=== PATIENT | male | born 1990 | race African-American/Black ===

== ENCOUNTER 2023-03-09 18:17 | Observation (INO) ==
--- NOTE | 2023-03-09 18:37 | ED Triage Note ---
Date of Service March 09, 2023 History of Present Illness This patient was briefly evaluated while in triage. An abbreviated physical exam was performed. This patient is a 32-year-old Male who presents to the ED for evaluation of foreign body ingestion. He states he swallowed a pen, paperclip, batteries and a toothbrush about 3 hours ago. Physical Exam Initial orders for labs and / or imaging were placed and patient was placed in the waiting area until a bed is available. Please see further documentation for the full ED course.
[2023-03-09 20:31] LABS: Basophils # (auto) 0.03 K/uL (0-0.2); Basophils % (auto) 0.3 %; Eosinophils # (auto) 0.14 K/uL (0-0.50); Eosinophils % (auto) 1.5 %; Hematocrit (blood only) 39.5 % (42.0-52.0); Hemoglobin 13.2 g/dl (14.0-18.0); Immature Granulocytes # (auto) 0.02 K/uL (0.01-0.20); Immature Granulocytes % (auto) 0.2 %; Lymphocytes # (auto) 1.68 K/uL (1.2-3.4); Lymphocytes % (auto) 18.2 %; Mean Corpuscular Hemoglobin 27.2 pg (25.0-34.0); Mean Corpuscular Hgb Conc 33.4 g/dL (32.0-36.0); Mean Corpuscular Volume 81.3 fL (80.0-100.0); Mean Platelet Volume 10.5 fL (9.4-12.4); Monocytes # (auto) 0.42 K/uL (0.11-0.59); Monocytes % (auto) 4.6 %; Neutrophils # (auto) 6.93 K/uL (1.40-6.50); Neutrophils % (auto) 75.2 %; Platelet Count 214 K/uL (130-400); RDW Coefficient of Variation 13.9 % (11.5-14.5); RDW Standard Deviation 41.6 fL (36.4-46.3); Red Blood Count 4.86 M/uL (4.70-6.10); White Blood Count 9.22 K/ul (4.8-10.8)
--- NOTE | 2023-03-09 20:32 | XRay Report ---
XR chest 1V portable, XR KUB/Abdomen 1 view HISTORY: Foreign body ingestion COMPARISON: Chest x-ray and KUB 02/15/2019. FINDINGS: Chest x-ray: There is a button overlying the right scapula which is likely external to the patient. T he lungs are clear. No pneumothorax. No pleural effusions. The heart is normal in size. No acute frac tures identified. KUB: There are 2 cylindrical foreign bodies within the distal stomach which measure 5.9 cm. These lik alli represent batteries. There are 2 linear radiopaque foreign bodies within the proximal stomach whi ch likely represent ingested pens. These measure approximately 11 cm in length. There is also a 9 cm linear metallic foreign body within the stomach. Suture material noted within the midabdomen. No evid ence for a bowel obstruction. A 16 mm density within the right midabdomen which may represent a calci fication rather than a metallic foreign body. No pneumoperitoneum. No pneumatosis. IMPRESSION: 1. No radiopaque foreign bodies within the chest. 2. Multiple foreign bodies identified within the stomach as described above. 3. A 16 mm density within the right midabdomen which may represent a calcification rather than a meta llic foreign body. Follow-up serial KUB recommended for confirmation. ACT 112: Negative or not required by law. Electronically signed by: Eagle Phillips M.D. 03/09/2023 8:30 PM
[2023-03-09 20:37] LABS: Alanine Aminotransferase 15 U/L (7-52); Albumin Globulin Ratio 1.6 (0.9-2); Albumin Level 4.6 gm/dl (3.4-5.0); Alkaline Phosphatase 46 U/L (34-104); Anion Gap 6 (3-11); Aspartate Aminotransferase 20 U/L (13-39); Bilirubin,Total 0.5 mg/dl (0.2-1.0); Blood Urea Nitrogen 9 mg/dl (6-23); Calcium 9.7 mg/dl (8.6-10.3); Carbon Dioxide 26 mmol/L (21-32); Chloride 102 mmol/L (98-107); Est GFR (African American) 115.7 ml/min; Est GFR (Non-African American) 99.8 ml/min; Globulin 2.8 gm/dl (2.5-4.0); Glucose 89 mg/dl (70-99(Fasting)); Sodium 134 mmol/L (136-145); Total Protein 7.4 gm/dl (6.0-8.3)
--- NOTE | 2023-03-09 20:42 | Emergency Department Note ---
ED Provider Note History of Present Illness Chief Complaint: Foreign Body Stated Complaint: SWALLOWED MULTIPLE ITEMS,ABDOMINAL PAIN Time Seen by Provider: 03/09/23 20:11 This patient is a 32-year-old male who presents to the emergency department accompanied by correctional officers. Patient ingested 2 pens, 2 batteries, a paperclip and a toothbrush about 3 hours prior to arrival. He states that he did this in an attempt to hurt himself. He has done the same in the past. He reports epigastric abdominal pain and nausea, denies vomiting. Home Medications Medication Instructions Recorded Confirmed Type ciclesonide 160 mcg/actuation 1 puff inhalation BID 02/09/20 03/09/23 History aerosol inhaler (Alvesco) fluoxetine 20 mg capsule 60 mg PO DAILY 02/09/20 03/09/23 History omeprazole 40 mg capsule,delayed 40 mg PO DAILY 02/09/20 03/09/23 History release acyclovir 400 mg tablet 400 mg PO BID 03/09/23 03/09/23 History albuterol sulfate 90 mcg/actuation 2 puff inhalation QID PRN 03/09/23 03/09/23 History aerosol inhaler Shortness Of Breath Or Wheezing benztropine 0.5 mg tablet 0.5 mg PO BID 03/09/23 03/09/23 History buspirone 30 mg tablet 30 mg PO BID 03/09/23 03/09/23 History calcium polycarbophil 625 mg 625 mg PO BID 03/09/23 03/09/23 History tablet (FiberCon) haloperidol decanoate 100 mg/mL 100 mg IM .Q2WK 03/09/23 03/09/23 History intramuscular solution montelukast 10 mg tablet 10 mg PO PM 03/09/23 03/09/23 History (Singulair) trazodone 150 mg tablet 150 mg PO HS 03/09/23 03/09/23 History Allergies Allergy/AdvReac Type Severity Reaction Status Date / Time Penicillins Allergy Severe Anaphylaxis Verified 03/09/23 21:07 Past Med/Surg History Medical History Asthma Depression Foreign body ingestion Gastric foreign body Obesity (BMI 30-39.9) Surgical History History of esophagogastroduodenoscopy (EGD) Family History Other Family history non-contributory Social History Smoking Status: Never smoker Preferred Language: Telugu Current Living Situation: Other Current Living Situation Comment: [facility] Feels Safe at Home: Yes Physical Exam Vital Signs Vital Signs - 24 hr 03/09/23 18:33 03/09/23 20:15 03/09/23 21:43 Temperature 36.7 C Temperature Source Temporal Artery Scan Pulse Rate 78 Pulse Rate [Apical] 55 L 65 Respiratory Rate 18 18 18 Respiratory Depth Normal Normal Blood Pressure 152/77 H Blood Pressure [Right Arm] 124/73 125/75 Blood Pressure Mean 102 Blood Pressure Mean [Right Arm] 90 91 Pulse Oximetry 97 98 98 Oxygen Delivery Method Room Air Room Air Room Air Sepsis Recent Fever Within 48 Hours No Sepsis New/Unexplained Change in Mental Status No Sepsis Action Taken by Nursing No Action Required VITALS: Vitals are noted on the nurse's note and reviewed by myself. GENERAL: This is a 32-year-old male, in no acute distress, well-developed well- nourished. SKIN: The skin was without rashes. MOUTH: Mucous membranes moist. HEART: Regular rate and rhythm without murmurs gallops or rubs. LUNGS: Clear to auscultation bilaterally without wheezes, rales or rhonchi. ABDOMEN: Positive bowel sounds x 4. Soft, epigastric tenderness to palpation. No guarding or rebound tenderness. NEURO: Patient was alert and oriented to person place and time. Course Administered Medications Dextrose/Sodium Chloride (D5w And Nss) 1,000 mls @ 80 mls/hr IV .[id number] ONE Stop: 03/10/23 10:45 Last Admin: 03/09/23 23:21 Dose: 80 mls/hr Documented By: ENS Discontinued Medications Morphine Sulfate (Morphine Sulfate 4 Mg/Ml 1 Ml Carp\Vial) 4 mg IV NOW STA Stop: 03/09/23 21:32 Last Admin: 03/09/23 21:39 Dose: 4 mg Documented By: NRB Ondansetron HCl (Ondansetron Inj 2 Mg/Ml 2 Ml Vial) 4 mg IV NOW STA Stop: 03/09/23 23:54 Last Admin: 03/10/23 00:01 Dose: 4 mg Documented By: Medical Decision Making Differential Diagnosis Differential diagnosis includes foreign body ingestion, perforated viscus, bowel obstruction, among others. Home Medications was personally reviewed by me Laboratory Data Attestation: I reviewed the patient's lab results. 03/09/23 18:36 03/09/23 18:36 Lab Results 03/09/23 03/09/23 03/09/23 Range/Units 18:36 18:36 Unknown WBC 9.22 (4.8-10.8) K/ul RBC 4.86 (4.70-6.10) M/uL Hgb 13.2 L (14.0-18.0) g/dl Hct 39.5 L (42.0-52.0) % MCV 81.3 (80.0-100.0) fL MCH 27.2 (25.0-34.0) pg MCHC 33.4 (32.0-36.0) g/dL RDW Std Deviation 41.6 (36.4-46.3) fL RDW Coeff of Pieter 13.9 (11.5-14.5) % Plt Count 214 (130-400) K/uL MPV 10.5 (9.4-12.4) fL Immature Gran % (Auto) 0.2 % Neut % (Auto) 75.2 % Lymph % (Auto) 18.2 % [place] % (Auto) 4.6 % Eos % (Auto) 1.5 % Baso % (Auto) 0.3 % Neut # (Auto) 6.93 H (1.40-6.50) K/uL Lymph # (Auto) 1.68 (1.2-3.4) K/uL [place] # (Auto) 0.42 (0.11-0.59) K/uL Eos # (Auto) 0.14 (0-0.50) K/uL Baso # (Auto) 0.03 (0-0.2) K/uL Immature Gran # (Auto) 0.02 (0.01-0.20) K/uL Sodium 134 L (136-145) mmol/L Potassium 4.0 (3.5-5.1) mmol/L Chloride 102 (98-107) mmol/L Carbon Dioxide 26 (21-32) mmol/L Anion Gap 6 (3-11) BUN 9 (6-23) mg/dl Creatinine 1.00 (0.6-1.4) mg/dl Est Cr Clr Drug Dosing Not Reportable Est GFR ( Amer) 115.7 ml/min Est GFR (Non-Af Amer) 99.8 ml/min BUN/Creatinine Ratio 9.0 L (10-20) Glucose 89 (70-99(Fasting)) mg/dl Calcium 9.7 (8.6-10.3) mg/dl Total Bilirubin 0.5 (0.2-1.0) mg/dl AST 20 (13-39) U/L ALT 15 (7-52) U/L Alkaline Phosphatase 46 (34-104) U/L Total Protein 7.4 (6.0-8.3) gm/dl Albumin 4.6 (3.4-5.0) gm/dl Globulin 2.8 (2.5-4.0) gm/dl Albumin/Globulin Ratio 1.6 (0.9-2) SARS-CoV-2, RNA, NAAT NEGATIVE (NEGATIVE) Imaging Data Attestation: I personally reviewed and interpreted this imaging study as follows: Radiologist's Impression: Chest X-Ray 03/09/23 18:35 XR chest 1V portable, XR KUB/Abdomen 1 view HISTORY: Foreign body ingestion COMPARISON: Chest x-ray and KUB 02/15/2019. FINDINGS: Chest x-ray: There is a button overlying the right scapula which is likely exte rnal to the patient. The lungs are clear. No pneumothorax. No pleural effusions. The heart is normal in size. No acute fractures identified. KUB: There are 2 cylindrical foreign bodies within the distal stomach which measure 5.9 cm. These likely represent batteries. There are 2 linear radiopaque foreign bodies within the proximal stomach which likely represent ingested pens. These measure approximately 11 cm in length. There is also a 9 cm linear metallic foreign body within the stomach. Suture material noted within the midabdomen. No evidence for a bowel obstruction. A 16 mm density within the right midabdomen which may represent a calcification rather than a metallic foreign body. No pneumoperitoneum. No pneumatosis. IMPRESSION: 1. No radiopaque foreign bodies within the chest. 2. Multiple foreign bodies identified within the stomach as described above. 3. A 16 mm density within the right midabdomen which may represent a calcification rather than a metallic foreign body. Follow-up serial KUB recommended for confirmation. ACT 112: Negative or not required by law. Electronically signed by: Eagle Phillips M.D. 03/09/2023 8:30 PM KUB X-Ray 03/09/23 18:35 XR chest 1V portable, XR KUB/Abdomen 1 view HISTORY: Foreign body ingestion COMPARISON: Chest x-ray and KUB 02/15/2019. FINDINGS: Chest x-ray: There is a button overlying the right scapula which is likely external to the patient. The lungs are clear. No pneumothorax. No pleural effusions. The heart is normal in size. No acute fractures identified. KUB: There are 2 cylindrical foreign bodies within the distal stomach which measure 5.9 cm. These likely represent batteries. There are 2 linear radiopaque foreign bodies within the proximal stomach which likely represent ingested pens. These measure approximately 11 cm in length. There is also a 9 cm linear metallic foreign body within the stomach. Suture material noted within the midabdomen. No evidence for a bowel obstruction. A 16 mm density within the right midabdomen which may represent a calcification rather than a metallic foreign body. No pneumoperitoneum. No pneumatosis. IMPRESSION: 1. No radiopaque foreign bodies within the chest. 2. Multiple foreign bodies identified within the stomach as described above. 3. A 16 mm density within the right midabdomen which may represent a calcification rather than a metallic foreign body. Follow-up serial KUB recommended for confirmation. ACT 112: Negative or not required by law. Electronically signed by: Eagle Phlilips M.D. 03/09/2023 8:30 PM MDM Narrative This patient is a 32-year-old male who presents to the emergency department for evaluation of swallowed foreign bodies. X-rays here did demonstrate multiple foreign bodies within the stomach. Patient stable, complaining of abdominal pain and was given something for pain. Case was discussed with the on-call blue print control clerk, Dr. Palacios, who recommended admission to the medicine service and states he will take the patient for endoscopy in the morning. COVID test was performed and was negative. Case was discussed with the [facility] service who agreed to evaluate the patient for further care. Impression Foreign body ingestion Discharge Plan Visit Data Chief Complaint: Foreign Body Stated Complaint: SWALLOWED MULTIPLE ITEMS,ABDOMINAL PAIN ED Provider: Ken Calix ED Midlevel Provider: Kusum Monroy Discharge Problem: Foreign body ingestion Forms Stand Alone Forms: My [facility] Prescriptions Prescriptions: No Action omeprazole 40 mg Capsule,Delayed Release(Dr/Ec) 40 mg PO DAILY fluoxetine 20 mg Capsule 60 mg PO DAILY Rx Instructions: CRUSH Alvesco 160 mcg/actuation Hfa Aerosol Inhaler 1 puff INHALATION BID benztropine [Cogentin] 0.5 mg Tablet 0.5 mg PO BID Rx Instructions: CRUSH haloperidol decanoate 100 mg/mL Solution 100 mg IM .Q2WK Rx Instructions: Q 2 WK ON FRIDAYS. acyclovir [Zovirax] 400 mg Tablet 400 mg PO BID Rx Instructions: CRUSH trazodone 150 mg Tablet 150 mg PO HS Rx Instructions: CRUSH THIS MED buspirone [BuSpar] 30 mg Tablet 30 mg PO BID calcium polycarbophil [FiberCon] 625 mg Tablet 625 mg PO BID Rx Instructions: CRUSH montelukast [Singulair] 10 mg Tablet 10 mg PO PM albuterol sulfate 90 mcg/actuation Hfa Aerosol Inhaler 2 puff INHALATION QID PRN (Reason: Shortness Of Breath Or Wheezing) Referrals Referrals: Nahum CARRASCO [Non-Staff] -
[2023-03-09] MEDS ORDERED: MoRPHine SULFATE 4 MG/ML 1 ML CARP\\VIAL IV STA (21:31)
[2023-03-09] MEDS ORDERED: ACETAMINOPHEN 325 MG TAB PO PRN (22:16)
[2023-03-09] MEDS ORDERED: D5W AND NSS 1,000 ML IV ONE (22:16)
[2023-03-09] MEDS ORDERED: ONDANSETRON INJ 2 MG/ML 2 ML VIAL IV STA (23:53)
[2023-03-10] MEDS ORDERED: ACETAMINOPHEN 325 MG TAB PO STA (00:59)
--- NOTE | 2023-03-10 01:00 | History & Physical Report ---
Date of Service March 10, 2023 Assessment & Plan (1) Foreign body ingestion: Plan: Recurrent incidents secondary to self-harm intent hx mood disorder/ antisocial personality disorder/ borderline personality disorder Possible systolic murmur on exam bronchial asthma, stable GERD, stable on PPI chronic anemia, hemoglobin at baseline ongoing vape use OBS GMF GI consult Re: Foreign body ingestion (ER provider already in touch with Dr. Paz) N.p.o. until patient seen by GI service in a.m. (Patient known to Licha CRAWLEY) Psych consult re: suicidality/self-harm Suicide precautions TTE Re: Systolic murmur Nicotine patch as needed DVT prophylaxis. SCDs Full code Text document was generated using [employer] voice recognition software. It may contain grammatical or spelling errors. Kindly contact undersigned for clarification of any documentation item in question. History of Present Illness Chief Complaint: Foreign body ingestion Primary Care Provider: DANILO Donato History obtained from patient and records. Medical history significant for mood disorder, antisocial personality disorder, borderline personality disorder, IBS, bronchial asthma, GERD, chronic anemia (baseline hemoglobin of 13), hx multiple foreign body ingestions status post endoscopic intervention, ongoing vape use. Patient ingested 2 pens, batteries, a paperclip and a toothbrush yesterday in attempt to hurt himself at correctional facility. Patient depressed about not being able to see his family. Achy upper abdominal pain with nausea. Patient denies chest pain, SOB. No vomiting, no fever, no chills. Medical History as above Surgical History : None Family History : Cerebral aneurysm Personal/Social history : Vape use, no EtOH intake, factory work prior to incarceration Allergies Allergy/AdvReac Type Severity Reaction Status Date / Time Penicillins Allergy Severe Anaphylaxis Verified 03/09/23 21:07 Home Medications Medication Instructions Recorded Confirmed Type ciclesonide 160 mcg/actuation 1 puff inhalation BID 02/09/20 03/09/23 History aerosol inhaler (Alvesco) fluoxetine 20 mg capsule 60 mg PO DAILY 02/09/20 03/09/23 History omeprazole 40 mg capsule,delayed 40 mg PO DAILY 02/09/20 03/09/23 History release acyclovir 400 mg tablet 400 mg PO BID 03/09/23 03/09/23 History albuterol sulfate 90 mcg/actuation 2 puff inhalation QID PRN 03/09/23 03/09/23 History aerosol inhaler Shortness Of Breath Or Wheezing benztropine 0.5 mg tablet 0.5 mg PO BID 03/09/23 03/09/23 History buspirone 30 mg tablet 30 mg PO BID 03/09/23 03/09/23 History calcium polycarbophil 625 mg 625 mg PO BID 03/09/23 03/09/23 History tablet (FiberCon) haloperidol decanoate 100 mg/mL 100 mg IM .Q2WK 03/09/23 03/09/23 History intramuscular solution montelukast 10 mg tablet 10 mg PO PM 03/09/23 03/09/23 History (Singulair) trazodone 150 mg tablet 150 mg PO HS 03/09/23 03/09/23 History Past Med/Surg History Medical History Asthma Depression Foreign body ingestion Gastric foreign body Obesity (BMI 30-39.9) Surgical History History of esophagogastroduodenoscopy (EGD) Family History Other Family history non-contributory Social History Smoking Status: Current every day smoker Second Hand Exposure: No; Do You Dip or Chew Tobacco: No; Tobacco Cessation Education Requested by Patient: No Hx Alcohol Use: No Hx Substance Use: No Preferred Language: [place] Islander Communication Ability: Effective Legal Specialist Required: No Beliefs That Will Affect Care: None Current Living Situation: Other Current Living Situation Comment: Inmate at [facility]. Feels Safe at Home: Yes Safety Concerns: Feels Safe At This Time Review of Systems Review of Systems: As per HPI, all other systems reviewed and negative Physical Exam Physical Exam: GENERAL: Slightly uncomfortable, obese, flat affect,no respiratory distress SKIN: Normal color, warm HEENT: Bespectacled, pink palpebral conjunctivae, no ptosis, dry buccal mucosa NECK : Supple, no tenderness CHEST : CTA, no tenderness HEART : Bradycardic, systolic murmur best heard over left sternal border ABDOMEN: Some distention, central abdominal tenderness EXTREMITIES : Minimal LE swelling, no LE tenderness, no other conspicuous deformities noted NEUROLOGIC : Coherent, no facial asymmetry, no other gross focality Results & Data Results & Data Vital Signs (Past 12 Hours) Vital Signs Temp Pulse Pulse Resp BP BP Pulse Ox 03/09/23 21:43 65 18 125/75 98 03/09/23 20:15 55 L 18 124/73 98 03/09/23 18:33 36.7 C 78 18 152/77 H 97 O2 Del Method 03/09/23 21:43 Room Air 03/09/23 20:15 Room Air 03/09/23 18:33 Room Air Laboratory Results Laboratory Results WBC 9.22 K/ul (4.8-10.8) 03/09/23 18:36 RBC 4.86 M/uL (4.70-6.10) 03/09/23 18:36 Hgb 13.2 g/dl (14.0-18.0) L 03/09/23 18:36 Hct 39.5 % (42.0-52.0) L 03/09/23 18:36 MCV 81.3 fL (80.0-100.0) 03/09/23 18:36 MCH 27.2 pg (25.0-34.0) 03/09/23 18:36 MCHC 33.4 g/dL (32.0-36.0) 03/09/23 18:36 RDW Std Deviation 41.6 fL (36.4-46.3) 03/09/23 18:36 RDW Coeff of Pieter 13.9 % (11.5-14.5) 03/09/23 18:36 Plt Count 214 K/uL (130-400) 03/09/23 18:36 MPV 10.5 fL (9.4-12.4) 03/09/23 18:36 Immature Gran % (Auto) 0.2 % 03/09/23 18:36 Neut % (Auto) 75.2 % 03/09/23 18:36 Lymph % (Auto) 18.2 % 03/09/23 18:36 [place] % (Auto) 4.6 % 03/09/23 18:36 Eos % (Auto) 1.5 % 03/09/23 18:36 Baso % (Auto) 0.3 % 03/09/23 18:36 Neut # (Auto) 6.93 K/uL (1.40-6.50) H 03/09/23 18:36 Lymph # (Auto) 1.68 K/uL (1.2-3.4) 03/09/23 18:36 [place] # (Auto) 0.42 K/uL (0.11-0.59) 03/09/23 18:36 Eos # (Auto) 0.14 K/uL (0-0.50) 03/09/23 18:36 Baso # (Auto) 0.03 K/uL (0-0.2) 03/09/23 18:36 Immature Gran # (Auto) 0.02 K/uL (0.01-0.20) 03/09/23 18:36 Sodium 134 mmol/L (136-145) L 03/09/23 18:36 Potassium 4.0 mmol/L (3.5-5.1) 03/09/23 18:36 Chloride 102 mmol/L (98-107) 03/09/23 18:36 Carbon Dioxide 26 mmol/L (21-32) 03/09/23 18:36 Anion Gap 6 (3-11) 03/09/23 18:36 BUN 9 mg/dl (6-23) 03/09/23 18:36 Creatinine 1.00 mg/dl (0.6-1.4) 03/09/23 18:36 Est Cr Clr Drug Dosing Not Reportable 03/09/23 18:36 Est GFR ( Amer) 115.7 ml/min 03/09/23 18:36 Est GFR (Non-Af Amer) 99.8 ml/min 03/09/23 18:36 BUN/Creatinine Ratio 9.0 (10-20) L 03/09/23 18:36 Glucose 89 mg/dl (70-99(Fasting)) 03/09/23 18:36 Calcium 9.7 mg/dl (8.6-10.3) 03/09/23 18:36 Total Bilirubin 0.5 mg/dl (0.2-1.0) 03/09/23 18:36 AST 20 U/L (13-39) 03/09/23 18:36 ALT 15 U/L (7-52) 03/09/23 18:36 Alkaline Phosphatase 46 U/L (34-104) 03/09/23 18:36 Total Protein 7.4 gm/dl (6.0-8.3) 03/09/23 18:36 Albumin 4.6 gm/dl (3.4-5.0) 03/09/23 18:36 Globulin 2.8 gm/dl (2.5-4.0) 03/09/23 18:36 Albumin/Globulin Ratio 1.6 (0.9-2) 03/09/23 18:36 SARS-CoV-2, RNA, NAAT NEGATIVE (NEGATIVE) 03/09/23 Unknown Impressions Chest X-Ray 03/09/23 18:35 XR chest 1V portable, XR KUB/Abdomen 1 view HISTORY: Foreign body ingestion COMPARISON: Chest x-ray and KUB 02/15/2019. FINDINGS: Chest x-ray: There is a button overlying the right scapula which is likely external to the patient. The lungs are clear. No pneumothorax. No pleural effusions. The heart is normal in size. No acute fractures identified. KUB: There are 2 cylindrical foreign bodies within the distal stomach which measure 5.9 cm. These likely represent batteries. There are 2 linear radiopaque foreign bodies within the proximal stomach which likely represent ingested pens. These measure approximately 11 cm in length. There is also a 9 cm linear metallic foreign body within the stomach. Suture material noted within the midabdomen. No evidence for a bowel obstruction. A 16 mm density within the right midabdomen which may represent a calcification rather than a metallic foreign body. No pneumoperitoneum. No pneumatosis. IMPRESSION: 1. No radiopaque foreign bodies within the chest. 2. Multiple foreign bodies identified within the stomach as described above. 3. A 16 mm density within the right midabdomen which may represent a calcification rather than a metallic foreign body. Follow-up serial KUB recommended for confirmation. ACT 112: Negative or not required by law. Electronically signed by: Eagle Phillips M.D. 03/09/2023 8:30 PM KUB X-Ray 03/09/23 18:35 XR chest 1V portable, XR KUB/Abdomen 1 view HISTORY: Foreign body ingestion COMPARISON: Chest x-ray and KUB 02/15/2019. FINDINGS: Chest x-ray: There is a button overlying the right scapula which is likely ex ternal to the patient. The lungs are clear. No pneumothorax. No pleural effusions. The heart is normal in size. No acute fractures identified. KUB: There are 2 cylindrical foreign bodies within the distal stomach which measure 5.9 cm. These likely represent batteries. There are 2 linear radiopaque foreign bodies within the proximal stomach which likely represent ingested pens. These measure approximately 11 cm in length. There is also a 9 cm linear metallic foreign body within the stomach. Suture material noted within the midabdomen. No evidence for a bowel obstruction. A 16 mm density within the right midabdomen which may represent a calcification rather than a metallic foreign body. No pneumoperitoneum. No pneumatosis. IMPRESSION: 1. No radiopaque foreign bodies within the chest. 2. Multiple foreign bodies identified within the stomach as described above. 3. A 16 mm density within the right midabdomen which may represent a calcification rather than a metallic foreign body. Follow-up serial KUB recommended for confirmation. ACT 112: Negative or not required by law. Electronically signed by: Eagle Phillips M.D. 03/09/2023 8:30 PM (1) Foreign body ingestion Encounter type: initial encounter Qualified Code(s): T18.9XXA - Foreign body of alimentary tract, part unspecified, initial encounter
[2023-03-10] MEDS ORDERED: KETOROLAC TROMETHAMINE 15 MG/ML VIAL IV ONE (03:38)
[2023-03-10] MEDS ORDERED: KETOROLAC TROMETHAMINE 15 MG/ML VIAL ONE (03:44)
[2023-03-10] MEDS: NICOTINE 21 MG/24 HR TDSY TD SCH (03:49)
[2023-03-10] MEDS ORDERED: PROMETHAZINE HCL 12.5 MG in SODIUM CHLORIDE 0.9% 50 ML IV PRN (04:24)
[2023-03-10] MEDS: traZODone HCL 50 MG TAB PO SCH ×2 (05:25→20:09)
[2023-03-10] MEDS: traMADol HCL 50 MG TABLET PO PRN ×2 (05:35→18:26)
[2023-03-10] MEDS ORDERED: ACETAMINOPHEN 1,000 MG/100 ML VIAL IV PRN (08:46)
--- NOTE | 2023-03-10 08:57 | Gastrointestinal Consultation ---
Date of Consultation March 10, 2023 Assessment & Plan (1) Foreign body ingestion: Pt is a 32 yo male, who swallowed objects as noted above due to worsening depression. - NPO - IVF support, PPI - Repeat KUB this AM to determine location of foreign bodies and decide if endoscopic intervention would be indicated. Supervising Physician Co-Signing Physician Notes Attg add: Plan EGD for FB removal today, anticipate discharge after procedure. History of Present Illness Reason for Consultation: Foreign body ingestion Requesting Physician: Dr. Jamel Tinoco Attending Physician: Dr. Veronica Toledo History of Present Illness Pt is a 32 yo male inmate from [place] who presented last night w c/o nausea, abd pain after ingestion foreign bodies. He has hx of depression, suicidal ideations. Was having family issues and getting more depressed. Swallowed 2 AA Energizer batteries, 2 pens, 1 toothbrush, and a paper clip yesterday at 3PM. Labs reviewed from admission wo acute issues. KUB yesterday evening showed multiple foreign bodies in stomach. This AM he reports feeling nauseated, no vomiting. Having mid to L side abd pain. Not passing flatus and hasn't had BM for days. Allergies Allergy/AdvReac Type Severity Reaction Status Date / Time Penicillins Allergy Severe Anaphylaxis Verified 03/09/23 21:07 Home Medications Medication Instructions Recorded Confirmed Type ciclesonide 160 mcg/actuation 1 puff inhalation BID 02/09/20 03/09/23 History aerosol inhaler (Alvesco) fluoxetine 20 mg capsule 60 mg PO DAILY 02/09/20 03/09/23 History omeprazole 40 mg capsule,delayed 40 mg PO DAILY 02/09/20 03/09/23 History release acyclovir 400 mg tablet 400 mg PO BID 03/09/23 03/09/23 History albuterol sulfate 90 mcg/actuation 2 puff inhalation QID PRN 03/09/23 03/09/23 History aerosol inhaler Shortness Of Breath Or Wheezing benztropine 0.5 mg tablet 0.5 mg PO BID 03/09/23 03/09/23 History buspirone 30 mg tablet 30 mg PO BID 03/09/23 03/09/23 History calcium polycarbophil 625 mg 625 mg PO BID 03/09/23 03/09/23 History tablet (FiberCon) haloperidol decanoate 100 mg/mL 100 mg IM .Q2WK 03/09/23 03/09/23 History intramuscular solution montelukast 10 mg tablet 10 mg PO PM 03/09/23 03/09/23 History (Singulair) trazodone 150 mg tablet 150 mg PO HS 03/09/23 03/09/23 History Patient History Medical History Asthma Depression Foreign body ingestion Gastric foreign body Obesity (BMI 30-39.9) Surgical History History of esophagogastroduodenoscopy (EGD) Family History Other Family history non-contributory Social History Smoking Status: Current every day smoker Second Hand Exposure: No; Do You Dip or Chew Tobacco: No; Tobacco Cessation Education Requested by Patient: No Hx Alcohol Use: No Hx Substance Use: No Preferred Language: Austrian Communication Ability: Effective Cardiac Catheterization Technologist Required: No Beliefs That Will Affect Care: None Current Living Situation: Other Current Living Situation Comment: Inmate at [facility]. Feels Safe at Home: Yes Safety Concerns: Feels Safe At This Time Assistive Devices: None Review of Systems Review of Systems: All systems reviewed & are unremarkable except as noted in HPI & below Physical Exam Constitutional: WD/WN, vitals as above well groomed, cooperative and comfortable Eyes: PERRL, conjunctivae normal, anicteric sclerae ENMT: external ear and nose normal, oropharynx normal Respiratory: normal respiratory effort, lungs clear to auscultation Cardiovascular: RRR, no murmur, no edema Gastrointestinal (Abdomen): TTP mid abd, LUQ areas Skin: no rashes, warm and dry no jaundice Psychiatric: A+Ox3, euthymic affect Lymphatic: no lymphedema Results & Data Vital Signs (Past 12 Hours) Vital Signs Temp Pulse Pulse Resp BP Pulse Ox O2 Del Method 03/10/23 07:36 36.5 C 52 L 17 119/73 98 Room Air 03/10/23 04:25 36.8 C 47 L 16 125/76 98 Room Air 03/10/23 04:00 59 L 16 127/82 03/10/23 01:00 60 18 149/95 H 98 Room Air 03/09/23 23:00 58 L 18 140/83 97 Room Air 03/09/23 21:43 65 18 125/75 98 Room Air (1) Foreign body ingestion Encounter type: initial encounter Qualified Code(s): T18.9XXA - Foreign body of alimentary tract, part unspecified, initial encounter
[2023-03-10] MEDS: BENZTROPINE MESYLATE 0.5 MG TAB PO SCH ×2 (09:14→20:08)
[2023-03-10] MEDS: busPIRone 15 MG TAB PO SCH ×2 (09:14→20:09)
[2023-03-10] MEDS: FLUoxetine HCL 20 MG CAP PO SCH (09:14)
[2023-03-10] MEDS: ACYCLOVIR 400 MG TAB PO SCH ×2 (09:14→20:08)
[2023-03-10] MEDS: PANTOprazole 40 MG TAB PO SCH (09:15)
[2023-03-10] MEDS: FLUTICASONE FUROATE 200MCG 14 PUFFS/INHALER INH SCH (09:15)
--- NOTE | 2023-03-10 09:18 | XRay Report ---
KUB CLINICAL HISTORY: Foreign body ingestion. FINDINGS: 3 AP supine abdominal radiographs are compared to study dated 03/09/2023. There is a nonobst ructive abdominal bowel gas pattern. 2 cylindrical foreign bodies projecting over the right mid abdom en measure up to 5 cm and likely represent batteries. An approximately 11 cm linear metallic foreign body also projects over the right upper quadrant. 2 additional radiolucent foreign bodies project ove r the left upper quadrant and measure approximately 13 cm. The calcified structure in the right midab domen seen yesterday is no longer visualized. No evidence of intraperitoneal free air is seen on thes e supine images. Suture tube projects over the mid abdomen. There is moderate colonic fecal retention . Phleboliths are noted in the pelvis. The lung bases are clear. The bony structures appear intact. IMPRESSION: There are at least 5 radiodense foreign bodies as detailed above. Electronically signed by: Jerry Mittal M.D. 03/10/2023 9:17 AM
[2023-03-10] MEDS ORDERED: D5W AND NSS 1,000 ML IV SCH (11:00)
[2023-03-10] MEDS ORDERED: ONDANSETRON INJ 2 MG/ML 2 ML VIAL IV PRN (11:49)
[2023-03-10] MEDS ORDERED: ePHEDrine sulfate 50 MG/ML AMP IV PRN (11:49)
[2023-03-10] MEDS ORDERED: ATROPINE SULFATE 0.1 MG/ML 10ML SYR IV PRN (11:49)
[2023-03-10] MEDS ORDERED: fentaNYL citrate PF 100 MCG/2 ML VIAL IV PRN (11:49)
--- NOTE | 2023-03-10 11:49 | Anesthesiology Consultation ---
Date of Service March 10, 2023 Assessment & Plan Chart Review Chart Review: cafeteria assistant initiated History Surgery Operation Date: 03/10/23 09:00 Proposed Procedures p Esophagogastroduodenoscopy - Veronica Toledo MD Height/Weight Height: 5 ft 11 in Weight: 98.4 kg Allergies Allergy/AdvReac Type Severity Reaction Status Date / Time Penicillins Allergy Severe Anaphylaxis Verified 03/09/23 21:07 Medications Home Medications Medication Instructions Recorded Confirmed Last Taken ciclesonide 160 mcg/actuation 1 puff inhalation BID 02/09/20 03/09/23 03/09/23 aerosol inhaler (Alvesco) fluoxetine 20 mg capsule 60 mg PO DAILY 02/09/20 03/09/23 03/09/23 omeprazole 40 mg capsule,delayed 40 mg PO DAILY 02/09/20 03/09/23 03/09/23 release acyclovir 400 mg tablet 400 mg PO BID 03/09/23 03/09/23 03/09/23 albuterol sulfate 90 mcg/actuation 2 puff inhalation QID PRN 03/09/23 03/09/23 Unknown aerosol inhaler Shortness Of Breath Or Wheezing benztropine 0.5 mg tablet 0.5 mg PO BID 03/09/23 03/09/23 03/09/23 buspirone 30 mg tablet 30 mg PO BID 03/09/23 03/09/23 03/09/23 calcium polycarbophil 625 mg 625 mg PO BID 03/09/23 03/09/23 03/09/23 tablet (FiberCon) haloperidol decanoate 100 mg/mL 100 mg IM .Q2WK 03/09/23 03/09/23 02/26/23 intramuscular solution montelukast 10 mg tablet 10 mg PO PM 03/09/23 03/09/23 03/08/23 (Singulair) trazodone 150 mg tablet 150 mg PO HS 03/09/23 03/09/23 03/08/23 Active Medications Generic Name Dose Route Start Last Admin Trade Name Freq PRN Reason Stop Dose Admin Acyclovir 400 mg 03/10/23 09:00 03/10/23 09:14 Acyclovir 400 Mg Tab PO 04/09/23 08:59 400 mg BID JESÚS Administration Benztropine Mesylate 0.5 mg 03/10/23 09:00 03/10/23 09:14 Benztropine Mesylate 0.5 Mg Tab PO 04/09/23 08:59 0.5 mg BID JESÚS Administration Buspirone HCl 30 mg 03/10/23 09:00 03/10/23 09:14 Buspirone 15 Mg Tab PO 04/09/23 08:59 30 mg BID JESÚS Administration Fluoxetine HCl 60 mg 03/10/23 09:00 03/10/23 09:14 Fluoxetine Hcl 20 Mg Cap PO 04/09/23 08:59 60 mg DAILY JESÚS Administration Fluticasone Furoate 1 puffs 03/10/23 09:00 03/10/23 09:15 Fluticasone Furoate 200mcg 14 Puffs/Inhaler INH 04/09/23 08:59 1 puffs DAILY JESÚS Administration Acetaminophen 1,000 mg in 100 mls @ 400 mls/hr 03/10/23 08:46 03/10/23 10:14 Ofirmev IV 03/13/23 08:45 Infused Q8H PRN Infusion Pain Miscellaneous 1 each 03/10/23 08:59 03/10/23 09:16 Remove Nicoderm Patch N/A 04/09/23 08:58 Not Given DAILY@0859 JESÚS Nicotine 21 mg 03/10/23 01:05 03/10/23 03:49 Nicotine 21 Mg/24 Hr Tdsy TD 04/09/23 01:04 21 mg QAM JESÚS Administration Pantoprazole Sodium 40 mg 03/10/23 09:00 03/10/23 09:15 Pantoprazole 40 Mg Tab PO 04/09/23 08:59 40 mg DAILY JESÚS Administration Tramadol HCl 25 - 50 mg 03/10/23 03:38 03/10/23 05:35 Tramadol Hcl 50 Mg Tablet PO 04/09/23 03:37 50 mg Q4H PRN Administration Pain Trazodone HCl 150 mg 03/10/23 04:24 03/10/23 05:25 Trazodone Hcl 50 Mg Tab PO 04/09/23 04:23 150 mg HS JESÚS Administration Past Medical History Medical History Asthma Depression Foreign body ingestion Gastric foreign body Obesity (BMI 30-39.9) Past Family History Family History Other Family history non-contributory Past Surgical History Surgical History History of esophagogastroduodenoscopy (EGD) Social History Smoking Status: Current every day smoker tobacco type: e-cigarettes Do You Dip or Chew Tobacco: No Hx Alcohol Use: No Hx Substance Use: No substance use type: does not use Physical Exam Vital Signs Last Vital Signs Temp 97.7 F 03/10/23 07:36 Pulse 52 L 03/10/23 07:36 Resp 17 03/10/23 07:36 BP 119/73 03/10/23 07:36 Pulse Ox 98 03/10/23 07:36 O2 Del Method Room Air 03/10/23 07:36 Testing Laboratory Results 03/09/23 18:36 03/09/23 18:36
--- NOTE | 2023-03-10 12:10 | History & Physical Report ---
Date of Service March 10, 2023 Assessment & Plan Admission and Anticipated Discharge Date Admission Date: March 10, 2023 History of Present Illness Primary Care Provider: DANILO Donato Foreign body CV: RRR Resp: CTA Abd: soft A/p: EGD for FB removal. We will remove only objects that are unlikely to pass. Allergies Allergy/AdvReac Type Severity Reaction Status Date / Time Penicillins Allergy Severe Anaphylaxis Verified 03/09/23 21:07 Home Medications Medication Instructions Recorded Confirmed Type ciclesonide 160 mcg/actuation 1 puff inhalation BID 02/09/20 03/09/23 History aerosol inhaler (Alvesco) fluoxetine 20 mg capsule 60 mg PO DAILY 02/09/20 03/09/23 History omeprazole 40 mg capsule,delayed 40 mg PO DAILY 02/09/20 03/09/23 History release acyclovir 400 mg tablet 400 mg PO BID 03/09/23 03/09/23 History albuterol sulfate 90 mcg/actuation 2 puff inhalation QID PRN 03/09/23 03/09/23 History aerosol inhaler Shortness Of Breath Or Wheezing benztropine 0.5 mg tablet 0.5 mg PO BID 03/09/23 03/09/23 History buspirone 30 mg tablet 30 mg PO BID 03/09/23 03/09/23 History calcium polycarbophil 625 mg 625 mg PO BID 03/09/23 03/09/23 History tablet (FiberCon) haloperidol decanoate 100 mg/mL 100 mg IM .Q2WK 03/09/23 03/09/23 History intramuscular solution montelukast 10 mg tablet 10 mg PO PM 03/09/23 03/09/23 History (Singulair) trazodone 150 mg tablet 150 mg PO HS 03/09/23 03/09/23 History Past Med/Surg History Medical History Asthma Depression Foreign body ingestion Gastric foreign body Obesity (BMI 30-39.9) Surgical History History of esophagogastroduodenoscopy (EGD) Family History Other Family history non-contributory Social History Smoking Status: Current every day smoker Second Hand Exposure: No; Do You Dip or Chew Tobacco: No; Tobacco Cessation Education Requested by Patient: No Hx Alcohol Use: No Hx Substance Use: No Preferred Language: Pashto Communication Ability: Effective Ways Operator Required: No Beliefs That Will Affect Care: None Current Living Situation: Other Current Living Situation Comment: Inmate at [facility]. Feels Safe at Home: Yes Safety Concerns: Feels Safe At This Time Results & Data Results & Data Vital Signs (Past 12 Hours) Vital Signs Temp Pulse Pulse Resp BP Pulse Ox O2 Del Method 03/10/23 12:03 36.6 C 51 L 20 135/80 100 Room Air 03/10/23 07:36 36.5 C 52 L 17 119/73 98 Room Air 03/10/23 04:25 36.8 C 47 L 16 125/76 98 Room Air 03/10/23 04:00 59 L 16 127/82 03/10/23 01:00 60 18 149/95 H 98 Room Air Code Status & VTE Plan VTE Prophylaxis Plan VTE Prophylaxis will be ordered: Yes
[2023-03-10] MEDS ORDERED: MIDAZOLAM HCL 1 MG/ML 2ML VIAL ONE (12:11)
[2023-03-10] MEDS ORDERED: fentaNYL citrate PF 100 MCG/2 ML VIAL ONE (12:11)
--- NOTE | 2023-03-10 13:00 | History & Physical Report ---
Date of Service March 10, 2023 Assessment & Plan Admission and Anticipated Discharge Date Admission Date: March 10, 2023 History of Present Illness Primary Care Provider: DANILO Donato Allergies Allergy/AdvReac Type Severity Reaction Status Date / Time Penicillins Allergy Severe Anaphylaxis Verified 03/09/23 21:07 Home Medications Medication Instructions Recorded Confirmed Type ciclesonide 160 mcg/actuation 1 puff inhalation BID 02/09/20 03/09/23 History aerosol inhaler (Alvesco) fluoxetine 20 mg capsule 60 mg PO DAILY 02/09/20 03/09/23 History omeprazole 40 mg capsule,delayed 40 mg PO DAILY 02/09/20 03/09/23 History release acyclovir 400 mg tablet 400 mg PO BID 03/09/23 03/09/23 History albuterol sulfate 90 mcg/actuation 2 puff inhalation QID PRN 03/09/23 03/09/23 History aerosol inhaler Shortness Of Breath Or Wheezing benztropine 0.5 mg tablet 0.5 mg PO BID 03/09/23 03/09/23 History buspirone 30 mg tablet 30 mg PO BID 03/09/23 03/09/23 History calcium polycarbophil 625 mg 625 mg PO BID 03/09/23 03/09/23 History tablet (FiberCon) haloperidol decanoate 100 mg/mL 100 mg IM .Q2WK 03/09/23 03/09/23 History intramuscular solution montelukast 10 mg tablet 10 mg PO PM 03/09/23 03/09/23 History (Singulair) trazodone 150 mg tablet 150 mg PO HS 03/09/23 03/09/23 History Past Med/Surg History Medical History Asthma Depression Foreign body ingestion Gastric foreign body Obesity (BMI 30-39.9) Surgical History History of esophagogastroduodenoscopy (EGD) Family History Other Family history non-contributory Social History Smoking Status: Current every day smoker Second Hand Exposure: No; Do You Dip or Chew Tobacco: No; Tobacco Cessation Education Requested by Patient: No Hx Alcohol Use: No Hx Substance Use: No Preferred Language: Georgian Communication Ability: Effective Certified Endoscopy Technician Required: No Beliefs That Will Affect Care: None Current Living Situation: Other Current Living Situation Comment: Inmate at [facility]. Feels Safe at Home: Yes Safety Concerns: Feels Safe At This Time Results & Data Results & Data Vital Signs (Past 12 Hours) Vital Signs Temp Pulse Pulse Resp BP Pulse Ox O2 Del Method 03/10/23 12:03 36.6 C 51 L 20 135/80 100 Room Air 03/10/23 07:36 36.5 C 52 L 17 119/73 98 Room Air 03/10/23 04:25 36.8 C 47 L 16 125/76 98 Room Air 03/10/23 04:00 59 L 16 127/82 Code Status & VTE Plan VTE Prophylaxis Plan VTE Prophylaxis will be ordered: Yes
[2023-03-10] MEDS ORDERED: PROPOFOL IV EMULSION 10 MG/ML 20 ML VIAL IV ONE (13:13)
[2023-03-10] MEDS ORDERED: SUCCINYLCHOLINE CHLORIDE 20 MG/ML 10 ML VIAL IV ONE (13:13)
[2023-03-10] MEDS ORDERED: ONDANSETRON INJ 2 MG/ML 2 ML VIAL ONE (13:13)
[2023-03-10] MEDS ORDERED: LIDOCAINE 2% MPF LOCAL 5 ML VIAL ONE (13:13)
[2023-03-10] MEDS ORDERED: ROCURONIUM BROMIDE 10 MG/ML 5 ML VIAL IV ONE (13:13)
--- NOTE | 2023-03-10 14:19 | Anesthesiology Progress Note ---
Date of Service March 10, 2023 Anesthesia Post Procedure Vital Signs Vital Signs: Temp Pulse Pulse Pulse Resp BP BP 03/10/23 14:10 51 L 13 118/75 03/10/23 14:00 52 L 14 121/74 03/10/23 13:52 96.8 F L 55 L 13 127/79 03/10/23 12:03 97.9 F 51 L 20 135/80 03/10/23 07:36 97.7 F 52 L 17 119/73 03/10/23 04:25 98.2 F 47 L 16 125/76 03/10/23 04:00 59 L 16 127/82 03/10/23 01:00 60 18 149/95 H 03/09/23 23:00 58 L 18 140/83 03/09/23 21:43 65 18 125/75 03/09/23 20:15 55 L 18 124/73 03/09/23 18:33 98.1 F 78 18 152/77 H Pulse Ox O2 Del Method O2 Flow Rate 03/10/23 14:10 98 Room Air 03/10/23 14:00 99 Oxymask 7 03/10/23 13:52 100 Oxymask 7 03/10/23 12:03 100 Room Air 03/10/23 07:36 98 Room Air 03/10/23 04:25 98 Room Air 03/10/23 04:00 03/10/23 01:00 98 Room Air 03/09/23 23:00 97 Room Air 03/09/23 21:43 98 Room Air 03/09/23 20:15 98 Room Air 03/09/23 18:33 97 Room Air Pain Intensity Abdomen: Pain Intensity: 7 Transfer of Care Handoff Completed per policy Notes Mental Status: alert / awake / arousable and participated in evaluation Patient Amnestic to Procedure: Yes Nausea / Vomiting: adequately controlled Pain: adequately controlled Airway Patency, RR, SpO2: stable & adequate BP & HR: stable & adequate Hydration State: stable & adequate Anesthetic Complications: no major complications apparent and Pt Satisfied with anesthetic care
[2023-03-10] MEDS ORDERED: ALBUTEROL HFA 8 GM INHALER INH PRN (14:35)
--- NOTE | 2023-03-10 14:57 | GI REPORT ---
Patient Name: Joshua Razat Procedure Date: 03/10/2023 12:57 PM Date of : 1990 Admit Type: Inpatient Age: 32 Gender: Male Attending MD: Veronica Toledo MD, Procedure: Upper GI endoscopy Providers: Veronica Toledo MD Referring MD: Kinga Vo Indications: Suspected ingestion of foreign body Medicines: See the Anesthesia note for documentation of the administered medications Complications: No immediate complications. Estimated Blood Loss: Estimated blood loss: none. Procedure: Pre-Anesthesia Assessment: - ASA Grade Assessment: III - A patient with severe systemic disease. After obtaining informed consent, the endoscope was passed under direct vision. Throughout the procedure, the patient's blood pressure, pulse, and oxygen saturations were monitored continuously. The Scope was introduced through the mouth, and advanced to the fourth part of duodenum. The upper GI endoscopy was accomplished without difficulty. The patient tolerated the procedure well. Findings: There was a toothbrush in the esophagus that was removed with a snare. There were two pens in the stomach removed using a snare. There was a straightened paperclip in the duodenum; one end of this appears to have been sharpened. This was removed using a cortez and a snare. The mucosa of the esophagus, stomach, and duodenum was normal. Recommendation: - Discharge patient to fdc. Clears today. Veronica Toledo M.D. Veronica Toledo MD 03/10/2023 2:57:12 PM This report has been signed electronically. Note Initiated On: 03/10/2023 12:57 PM Number of Addenda: 0 I attest to the content of the Intraoperative Record and orders documented therein, exceptions below {[id number]}
--- NOTE | 2023-03-10 15:48 | Hospitalist Progress Note ---
Date of Service March 10, 2023 Assessment & Plan (1) Foreign body ingestion: Plan: This is a 32-year-old male with recurrent depressive disorder who presents to ED on 03/10 secondary to foreign body ingestion. Patient has multiple recurrences of this secondary to self-harm intent. He states recently increase in depression and impulsiveness due to lack of family support and diagnosis of herpes. hx mood disorder/ antisocial personality disorder/ borderline personality disorder Foreign body ingestion Patient reports swallowing toothbrush, 2 energizer batteries, sharpened paperclip into pen GI consulted KUB performed this morning and viewed Patient underwent EGD this late morning and tooth brush, pens and paperclip removed batteries not removed, not lithium, will be able to pass on own clear liquid diet tomorrow anticipate d/c tomorrow back to residential Recurrent depression Suicidal ideation 1:1 finger foods only psych not to see him will need to follow with psychiatrist as OP continue meds bronchial asthma, stable GERD, stable on PPI chronic anemia, hemoglobin at baseline ongoing vape use nicotine patch DVT ppx: SCDS FULL CODE PCP: Kinga CARRASCO Pt was admitted after 00:00 on 03/10/23 therefore this is not a billable service. Seen in collaboration with Dr. Tinoco. Admission and Anticipated Discharge Date Admission Date: March 10, 2023 Supervising Physician Co-Signing Physician Notes Patient seen and examined independently. Discussed with above provider. Patient underwent endoscopy; found to have to toothbrush in the esophagus that was removed with a snare. 2 pens in the stomach was also removed. Also, straightened paperclip was remove from duodenum. The mucosa of esophagus, stomach and duodenum was normal. Patient started on clear liquid. No utensils. Will observe overnight and DC tomorrow AM. Subjective Pt was seen and examined in room 361-1 follow up ingestion of foreign body. Pt was seen pre EGD. complain of periumbilical abd pain. Denies n/v/d, f/c/s, chest pain, sob. No BM, no flatus. GI at bedside. Review of Systems Review of Systems: All systems reviewed & are unremarkable except as noted in HPI & below Physical Exam Physical Exam: Gen: WD/WN, NAD, A&O x3 HEENT: Normocephalic, atraumatic, conjunctivae moist, sclerae anicteric, mucous membranes moist. Lung: Clear to Auscultation bilaterally, no wheezes/rales/rhonchi Heart: Regular rate, regular rhythm, no murmurs, rubs, or gallops Abdomen: Soft, NT, ND +BS x 4 mild periumbilical abd pain Extremities: No edema Skin: Warm, no rash, negative turgor. Results & Data Results & Data Vital Signs (Past 12 Hours) Vital Signs Temp Pulse Pulse Resp BP Pulse Ox O2 Del Method 03/10/23 15:34 36.6 C 70 18 116/72 98 Room Air 03/10/23 15:06 36.6 C 64 18 113/72 98 Room Air 03/10/23 14:30 36.4 C L 53 L 16 120/81 96 Room Air 03/10/23 14:20 36.1 C L 49 L 13 116/69 97 Room Air 03/10/23 14:10 51 L 13 118/75 98 Room Air 03/10/23 14:00 52 L 14 121/74 99 Oxymask 03/10/23 13:52 36 C L 55 L 13 127/79 100 Oxymask 03/10/23 12:03 36.6 C 51 L 20 135/80 100 Room Air 03/10/23 07:36 36.5 C 52 L 17 119/73 98 Room Air 03/10/23 04:25 36.8 C 47 L 16 125/76 98 Room Air 03/10/23 04:00 59 L 16 127/82 O2 Flow Rate 03/10/23 15:34 03/10/23 15:06 03/10/23 14:30 03/10/23 14:20 03/10/23 14:10 03/10/23 14:00 7 03/10/23 13:52 7 03/10/23 12:03 03/10/23 07:36 03/10/23 04:25 03/10/23 04:00 Diagnostic Findings EGD: Findings: There was a toothbrush in the esophagus that was removed with a snare. There were two pens in the stomach removed using a snare. There was a straightened paperclip in the duodenum; one end of this appears to have been sharpened. This was removed using a cortez and a snare. The mucosa of the esophagus, stomach, and duodenum was normal. Recommendation: - Discharge patient to residential. Clears today. Medications Administered Current Inpatient Medications Acetaminophen (Acetaminophen 325 Mg Tab) 650 mg PO Q6H PRN PRN Reason: Fever/pain Stop: 04/08/23 22:15 Acyclovir (Acyclovir 400 Mg Tab) 400 mg PO BID JESÚS Stop: 04/09/23 08:59 Last Admin: 03/10/23 09:14 Dose: 400 mg Albuterol (Albuterol Hfa 8 Gm Inhaler) 2 puffs INH QID PRN PRN Reason: Shortness Of Breath Or Wheezing Stop: 04/09/23 14:34 Benztropine Mesylate (Benztropine Mesylate 0.5 Mg Tab) 0.5 mg PO BID JESÚS Stop: 04/09/23 08:59 Last Admin: 03/10/23 09:14 Dose: 0.5 mg Buspirone HCl (Buspirone 15 Mg Tab) 30 mg PO BID JESÚS Stop: 04/09/23 08:59 Last Admin: 03/10/23 09:14 Dose: 30 mg Calcium Polycarbophil (Calcium Polycarbophil 625mg Tab) 625 mg PO BID JESÚS Stop: 04/09/23 20:59 Fluoxetine HCl (Fluoxetine Hcl 20 Mg Cap) 60 mg PO DAILY JESÚS Stop: 04/09/23 08:59 Last Admin: 03/10/23 09:14 Dose: 60 mg Fluticasone Furoate (Fluticasone Furoate 200mcg 14 Puffs/Inhaler) 1 puffs INH DAILY JESÚS Stop: 04/09/23 08:59 Last Admin: 03/10/23 09:15 Dose: 1 puffs Haloperidol Decanoate (Haloperidol Decanoate Inj 50 Mg/Ml Vial) 100 mg IM Q14D [facility] Stop: 04/11/23 08:59 Acetaminophen (Ofirmev) 1,000 mg in 100 mls @ 400 mls/hr IV Q8H PRN PRN Reason: Pain Stop: 03/13/23 08:45 Last Infusion: 03/10/23 10:14 Dose: Infused Miscellaneous (Remove Nicoderm Patch) 1 each N/A DAILY@0859 [facility] Stop: 04/09/23 08:58 Last Admin: 03/10/23 09:16 Dose: Not Given Montelukast Sodium (Montelukast Sodium 10 Mg Tablet) 10 mg PO PM JESÚS Stop: 04/09/23 20:59 Nicotine (Nicotine 21 Mg/24 Hr Tdsy) 21 mg TD QAM JESÚS Stop: 04/09/23 01:04 Last Admin: 03/10/23 03:49 Dose: 21 mg Pantoprazole Sodium (Pantoprazole 40 Mg Tab) 40 mg PO DAILY JESÚS Stop: 04/09/23 08:59 Last Admin: 03/10/23 09:15 Dose: 40 mg Tramadol HCl (Tramadol Hcl 50 Mg Tablet) 25 - 50 mg PO Q4H PRN PRN Reason: Pain Stop: 04/09/23 03:37 Last Admin: 03/10/23 05:35 Dose: 50 mg Trazodone HCl (Trazodone Hcl 50 Mg Tab) 150 mg PO HS JESÚS Stop: 04/09/23 04:23 Last Admin: 03/10/23 05:25 Dose: 150 mg (1) Foreign body ingestion Encounter type: initial encounter Qualified Code(s): T18.9XXA - Foreign body of alimentary tract, part unspecified, initial encounter
[2023-03-10] MEDS: CALCIUM POLYCARBOPHIL 625MG TAB PO SCH (20:09)
[2023-03-10] MEDS ORDERED: MoRPHine SULFATE 4 MG/ML 1 ML CARP\\VIAL IV STA (20:17)
[2023-03-10] MEDS ORDERED: MONTELUKAST SODIUM 10 MG TABLET PO SCH (21:00)
[2023-03-11 06:22] LABS: BUN Creatinine Ratio 7.5 (10-20); Calcium 9.3 mg/dl (8.6-10.3); Creatinine Clr Calc Pharmacy 120.7 ml/min; Est GFR (African American) 107.9 ml/min; Est GFR (Non-African American) 93.1 ml/min
[2023-03-11 06:36] LABS: Basophils # (auto) 0.03 K/uL (0-0.2); Basophils % (auto) 0.6 %; Eosinophils # (auto) 0.21 K/uL (0-0.50); Eosinophils % (auto) 4.2 %; Hematocrit (blood only) 38.3 % (42.0-52.0); Hemoglobin 12.5 g/dl (14.0-18.0); Immature Granulocytes # (auto) 0.01 K/uL (0.01-0.20); Immature Granulocytes % (auto) 0.2 %; Lymphocytes # (auto) 1.73 K/uL (1.2-3.4); Lymphocytes % (auto) 34.9 %; Mean Corpuscular Hemoglobin 26.7 pg (25.0-34.0); Mean Corpuscular Hgb Conc 32.6 g/dL (32.0-36.0); Mean Corpuscular Volume 81.8 fL (80.0-100.0); Mean Platelet Volume 10.2 fL (9.4-12.4); Monocytes # (auto) 0.37 K/uL (0.11-0.59); Monocytes % (auto) 7.5 %; Neutrophils # (auto) 2.61 K/uL (1.40-6.50); Neutrophils % (auto) 52.6 %; Platelet Count 184 K/uL (130-400); RDW Standard Deviation 41.7 fL (36.4-46.3); Red Blood Count 4.68 M/uL (4.70-6.10); White Blood Count 4.96 K/ul (4.8-10.8)
[2023-03-11] MEDS: NICOTINE 21 MG/24 HR TDSY TD SCH (10:10)
[2023-03-11] MEDS: PANTOprazole 40 MG TAB PO SCH (10:10)
[2023-03-11] MEDS: CALCIUM POLYCARBOPHIL 625MG TAB PO SCH (10:11)
[2023-03-11] MEDS: busPIRone 15 MG TAB PO SCH (10:11)
[2023-03-11] MEDS: ACYCLOVIR 400 MG TAB PO SCH (10:11)
[2023-03-11] MEDS: BENZTROPINE MESYLATE 0.5 MG TAB PO SCH (10:11)
[2023-03-11] MEDS: FLUoxetine HCL 20 MG CAP PO SCH (10:11)
[2023-03-11] MEDS: FLUTICASONE FUROATE 200MCG 14 PUFFS/INHALER INH SCH (10:12)
[2023-03-11] MEDS: traMADol HCL 50 MG TABLET PO PRN (10:17)
--- NOTE | 2023-03-11 14:35 | Discharge Summary ---
Date of Service March 11, 2023 Admission HPI Per Admitting Provider History obtained from patient and records. Medical history significant for mood disorder, antisocial personality disorder, borderline personality disorder, IBS, bronchial asthma, GERD, chronic anemia (baseline hemoglobin of 13), hx multiple foreign body ingestions status post endoscopic intervention, ongoing vape use. Patient ingested 2 pens, batteries, a paperclip and a toothbrush yesterday in attempt to hurt himself at correctional facility. Patient depressed about not being able to see his family. Achy upper abdominal pain with nausea. Patient denies chest pain, SOB. No vomiting, no fever, no chills. Admission Exam Per Admitting Provider GENERAL: Slightly uncomfortable, obese, flat affect,no respiratory distress SKIN: Normal color, warm HEENT: Bespectacled, pink palpebral conjunctivae, no ptosis, dry buccal mucosa NECK : Supple, no tenderness CHEST : CTA, no tenderness HEART : Bradycardic, systolic murmur best heard over left sternal border ABDOMEN: Some distention, central abdominal tenderness EXTREMITIES : Minimal LE swelling, no LE tenderness, no other conspicuous deformities noted NEUROLOGIC : Coherent, no facial asymmetry, no other gross focality Principal Diagnosis Foreign body ingestion Suicidal ideation Discharge Exam Constitutional: WD/WN, vitals as above, NAD, sitting up in bed, pleasant, conversing easily Respiratory: normal respiratory effort, lungs clear to auscultation, no wheeze, rales, rhonchi. Normal insp/exp effort, no accessory muscle use Cardiovascular: RRR, no murmur, no edema Vessels: no JVD or carotid bruit Chest: normal inspection of chest Abdomen: normal bowel sounds, soft, nontender, no hepatosplenomegaly Musculoskeletal: no cyanosis or clubbing, extremities motor strength 5/5 Skin: no rashes, warm and dry normal turgor Neurologic: PERRL, EOMI, accommodation nl, no face palsy, no dysarthria CN's II- XI intact bilaterally and moves all extremities Psychiatric: A+Ox3, euthymic affect Lymphatic: no cervical or axillary lymphadenopathy : deferred Discharge Data Allergies Allergy/AdvReac Type Severity Reaction Status Date / Time Penicillins Allergy Severe Anaphylaxis Verified 03/09/23 21:07 Consultations 03/10/23 04:24 Consult Gastroenterology Routine Procedures Performed Operation Date: 03/10/23 09:00 Actual Procedures p Esophagogastroduodenoscopy with foreign body removal - Veronica Toledo MD Hospital Course (1) Foreign body ingestion: Patient is a 32-year-old male with recurrent depressive disorder who presents to ED on 03/10 secondary to foreign body ingestion. Patient has multiple recurrences of this secondary to self-harm intent. He states recently increase in depression and impulsiveness due to lack of family support and diagnosis of herpes. hx mood disorder/ antisocial personality disorder/ borderline personality disorder Patient reportedly toothbrush, 2 energizer batteries, sharpened paperclip into pen Patient underwent EGD with removal of tooth brush, pins and paperclip. As per GI, only objects that are unlikely to pass will be removed. Patient was then started on clear liquid diet after endoscopy. It was advanced to finger food. As per GI, patient was stable for discharge back to [facility]. Patient did not have bowel movement at the time of discharge. Discussed and provided update to the physician physician at the correctional f acility prior to discharge. Total Time Total Time Spent Total Time Spent (In Minutes): 45 Total Time Includes: Examination of the Patient, Discharge Planning, Medication Reconciliation, Communication With Other Providers and Other Discharge Plan Discharge Items Patient Disposition: Correctional Facility Reason For Visit: ABD PAIN, SUICIDALITY Discharge Diagnosis: Foreign body ingestion Suicidal ideation Depression Activity: Resume your previous activity Non-emergency contact: Primary Care Provider Call non-emergency contact if: you have any medication questions and your symptoms worsen Follow-up/Referrals: Kinga CARRASCO [Primary Care Provider] - Diet: Regular Addtl Attending Provider Instructions: You underwent endoscopy on 03/10/2023; a toothbrush in the esophagus that was removed with a snare. 2 pens in the stomach was also removed. Also, strai ghtened paperclip was remove from duodenum. Discussion was GI was done; you are cleared to be transferred back to correctional facility. Continue suicide precautions with one-to-one. Finger foods. No medication changes have been made. Pending Studies at Discharge: No Stand-Alone Forms: My [employer] Patient informed of condition?: No DNR: No Discharge Level of Care: Other Communicable Disease: No Discharge Prognosis: Stable Lines: None Urinary Catheter: No Medications and DC Order Prescriptions: Continued omeprazole 40 mg Capsule,Delayed Release(Dr/Ec) 40 mg PO DAILY fluoxetine 20 mg Capsule 60 mg PO DAILY Rx Instructions: CRUSH Alvesco 160 mcg/actuation Hfa Aerosol Inhaler 1 puff INHALATION BID benztropine 0.5 mg Tablet 0.5 mg PO BID Rx Instructions: CRUSH haloperidol decanoate 100 mg/mL Solution 100 mg IM .Q2WK Rx Instructions: Q 2 WK ON FRIDAYS. acyclovir 400 mg Tablet 400 mg PO BID Rx Instructions: CRUSH trazodone 150 mg Tablet 150 mg PO HS Rx Instructions: CRUSH THIS MED buspirone 30 mg Tablet 30 mg PO BID calcium polycarbophil [FiberCon] 625 mg Tablet 625 mg PO BID Rx Instructions: CRUSH montelukast [Singulair] 10 mg Tablet 10 mg PO PM albuterol sulfate 90 mcg/actuation Hfa Aerosol Inhaler 2 puff INHALATION QID PRN (Reason: Shortness Of Breath Or Wheezing) Admission Data Admit Date/Time: 03/10/23 01:02 Attending Provider: Jamel Tinoco Admit Provider: Ian Hull Primary Care Provider: Kinga CARRASCO Other Providers: Isatu Antoine ; Allison Brewer ; David Palacios ; Lizette Slater ; Veronica Jones ; Sabiha Menendez ; Lizz Rain ; Mukesh Romero ; Giancarlo Mondragon ; Kp Newman ; Veronica Toledo ; Sabas Gordon ; Jodie Workman ; Delaney Cerna ; Sharifa Joaquin ; Rosa Zimmer ; Chela Thorne ; Jose C Deluca ; Jamshid Khan ; Nuria Anderson ; Oc Braxton Jr Other Interventions: Discharge Summary Assessment (RN) Last Done: 03/11/23 12:31
[2023-03-12] MEDS ORDERED: HALOPERIDOL DECANOATE INJ 50 MG/ML VIAL IM SCH (09:00)
== END 2023-03-11 14:10 ==
LOC: ED 18:17 → 3W 18:17 → SUATTDRO 03-10 01:02 → 3W 03-10 04:33

== ENCOUNTER 2023-03-23 22:07 | Inpatient (IN) ==
[2023-03-23] MEDS ORDERED: LIDOCAINE/EPINEPH/TETRACAINE 1 EA SYR EXT STA (22:16)
[2023-03-23] MEDS ORDERED: LIDOCAINE/EPINEPH/TETRACAINE 1 EA SYR EXT ONE (22:17)
--- NOTE | 2023-03-23 22:33 | Emergency Department Note ---
Impression & Plan Gastric foreign body, Foreign body ingestion, Simple laceration of neck, Laceration of abdominal wall ED Provider Note Provider: Jose Sandhu MD DATE OF SERVICE: 03/23/2023 CHIEF COMPLAINT: Foreign body ingestion and cuts from group home HISTORY OF PRESENT ILLNESS: Patient is a 32-year-old gentleman history of mood disorder, borderline personality sorter, IBS, GERD, multiple prior foreign body ingestions presenting from [facility] today via ambulance after ingesting additional foreign bodies and attempting to cut his neck and abdomen. This was an attempt to harm himself but then thought about his children and changed his mind. Patient by his report swallowed a toothbrush, 6 ports, and 2 AAA batteries. Patient states he used a razor to try to cut his neck and did cut the upper portion of his abdomen. Some pain at the cut sites. Denies difficulty swallowing at this point. States he had his tetanus shot about 4 to 5 months ago. Denies other significant ingestion. States he thought about his children and change his mind about wanting to end his life so did not cut deeper and contacted for help. Bandaging applied by EMS and brought here with controlled bleeding. No anticoagulation reported. PAST MEDICAL HISTORY: As noted above MEDICATIONS: Reviewed home medication list SOCIAL HISTORY: Inmate at [facility] correctional institution PHYSICAL EXAM: GENERAL: alert and oriented in no acute distress on stretcher handcuffed with guards at bedside Head: normocephalic and atraumatic EYES: No injection, discharge or icterus. NECK: Trachea midline. Supple without crepitus. There are multiple small linear superficial lacerations on the bilateral neck without active bleeding. Does not appear to violate the platysma. ENT: Mucous membranes pink and moist. Pharynx without erythema or exudate. LUNGS: Airway patent. No retractions. Breath sounds clear with good air entry bilaterally. HEART: Regular rate and rhythm. No chest wall tenderness ABDOMEN: Soft without guarding or rebound. The upper abdomen there is an approximately 12 cm superficial wound not violating the musculature along the midline above the umbilicus. No active bleeding. No significant foreign bodies noted here. SKIN: Acyanotic, warm, dry, without rashes EXTREMITIES: Without swelling, tenderness or deformity handcuffs in place. NEUROLOGICAL: No focal deficits. No aphasia. No facial droop or slurred speech. Normal strength and tone in the extremities. Sensation to gross touch normal. Patient's laboratory studies and imaging reviewed. Differential includes foreign body ingestion with possible visceral perforation or esophageal perforation, lacerations with concern for possible active bleeding, vascular injury, nerve injury, or violation of peritoneum. IMPRESSION/MEDICAL DECISION MAKING: Patient with history of psychiatric disorders as well as foreign body ingestions now attempted to harm himself by cutting his throat abdomen as well as multiple ingestions today. Completed CT to evaluate for positioning of multiple ingestions. Was here several weeks ago for similar and required endoscopic removal of several similar objects. Superficial cuts to the neck not deep at all and do not require closure. No active bleeding. Again does not appear to violate into deeper layers and I doubt any deep neurovascular injury. Swallowing without issue. Patient's upper abdomen with a fairly large wound but superficial nature and I believe violates into the peritoneum. Let gel applied. We will clean and have physician assistant associate full professor assisted with closure here. COVID swab and basic labs sent. Blood work reassuring with very minimal anemia 12.7. Negative COVID. CT imaging without evidence of perforation. Multiple foreign bodies noted in the stomach. Discussed with GI on-call. The endoscopy suite was alert and he will be taken there for retrieval of foreign bodies. At that point he would likely be stable for discharge to group home. Suture of the abdomen will be to be removed in approximately 14 days and monitored for infection. Do not feel antibiotics indicated at this point given the superficial nature and his lack of other comorbidities. He will be monitored by the [facility]. DIAGNOSIS: Foreign body ingestion, neck and abdominal laceration DISPOSITION: Transfer to endoscopy suite for foreign body removal with likely discharge afterwards Past Med/Surg History Medical History Asthma Depression Foreign body ingestion Gastric foreign body Obesity (BMI 30-39.9) Surgical History History of esophagogastroduodenoscopy (EGD) Family History Other Family history non-contributory Social History Smoking Status: Current every day smoker Tobacco Type: E-cigarettes / Vaping Second Hand Exposure: No; Do You Dip or Chew Tobacco: No; Hx Alcohol Use: No Hx Substance Use: No Preferred Language: Indonesian Communication Ability: Effective Wound Care Specialist Required: No Beliefs That Will Affect Care: None Current Living Situation: Other Current Living Situation Comment: Inmate at [facility]. Feels Safe at Home: Yes Assistive Devices: None Allergies Allergies Allergy/AdvReac Type Severity Reaction Status Date / Time Penicillins Allergy Severe Anaphylaxis Verified 03/23/23 22:26 Home Meds Home Medications Medication Instructions Recorded Confirmed ciclesonide 160 mcg/actuation 1 puff inhalation BID 02/09/20 03/23/23 aerosol inhaler (Alvesco) fluoxetine 20 mg capsule 80 mg PO DAILY 02/09/20 03/23/23 omeprazole 40 mg capsule,delayed 40 mg PO DAILY 02/09/20 03/23/23 release acyclovir 400 mg tablet 400 mg PO BID 03/09/23 03/23/23 albuterol sulfate 90 mcg/actuation 2 puff inhalation QID PRN 03/09/23 03/23/23 aerosol inhaler Shortness Of Breath Or Wheezing benztropine 0.5 mg tablet 0.5 mg PO BID 03/09/23 03/23/23 buspirone 30 mg tablet 30 mg PO BID 03/09/23 03/23/23 calcium polycarbophil 625 mg 625 mg PO BID 03/09/23 03/23/23 tablet (FiberCon) haloperidol decanoate 100 mg/mL 100 mg IM .Q2WK 03/09/23 03/23/23 intramuscular solution montelukast 10 mg tablet 10 mg PO PM 03/09/23 03/23/23 (Singulair) trazodone 150 mg tablet 150 mg PO HS 03/09/23 03/23/23 polyethylene glycol 3350 17 17 g PO DAILY 03/23/23 03/23/23 gram/dose oral powder (Miralax) Results & Data (ED) Vital Signs Vital Signs - 24 hr 03/23/23 22:15 03/23/23 22:12 03/23/23 22:37 Temperature 37.3 C Temperature Source Oral Pulse Rate 67 65 Pulse Rhythm Regular Pulse Strength Normal Respiratory Rate 17 22 Respiratory Effort / Characteristics Non-Labored Spontaneous Respiratory Depth Normal Respiratory Pattern Regular Blood Pressure 138/98 Blood Pressure Mean 111 Blood Pressure Position Sitting Pulse Oximetry 97 99 Oxygen Delivery Method Room Air Room Air Sepsis Recent Fever Within 48 Hours No Sepsis New/Unexplained Change in Mental Status N/A Sepsis Action Taken by Nursing No Action Required 03/23/23 22:38 03/23/23 23:00 03/24/23 00:25 Temperature Temperature Source Pulse Rate 68 57 L 84 Pulse Rhythm Pulse Strength Respiratory Rate 23 20 18 Respiratory Effort / Characteristics Respiratory Depth Respiratory Pattern Blood Pressure 151/86 H 165/98 H Blood Pressure Mean 107 Blood Pressure Position Pulse Oximetry 99 97 98 Oxygen Delivery Method Room Air Room Air Sepsis Recent Fever Within 48 Hours Sepsis New/Unexplained Change in Mental Status Sepsis Action Taken by Nursing Laboratory Data 03/23/23 22:22 03/23/23 22:22 Lab Results 03/23/23 03/23/23 03/23/23 Range/Units 22:00 22:22 22:22 WBC 8.66 (4.8-10.8) K/ul RBC 4.69 L (4.70-6.10) M/uL Hgb 12.7 L (14.0-18.0) g/dl Hct 37.8 L (42.0-52.0) % MCV 80.6 (80.0-100.0) fL MCH 27.1 (25.0-34.0) pg MCHC 33.6 (32.0-36.0) g/dL RDW Std Deviation 39.4 (36.4-46.3) fL RDW Coeff of Pieter 13.5 (11.5-14.5) % Plt Count 210 (130-400) K/uL MPV 9.8 (9.4-12.4) fL Immature Gran % (Auto) 0.2 % Neut % (Auto) 76.2 % Lymph % (Auto) 17.3 % Willacy % (Auto) 4.6 % Eos % (Auto) 1.2 % Baso % (Auto) 0.5 % Neut # (Auto) 6.60 H (1.40-6.50) K/uL Lymph # (Auto) 1.50 (1.2-3.4) K/uL Willacy # (Auto) 0.40 (0.11-0.59) K/uL Eos # (Auto) 0.10 (0-0.50) K/uL Baso # (Auto) 0.04 (0-0.2) K/uL Immature Gran # (Auto) 0.02 (0.01-0.20) K/uL Sodium 135 L (136-145) mmol/L Potassium 3.7 (3.5-5.1) mmol/L Chloride 100 (98-107) mmol/L Carbon Dioxide 27 (21-32) mmol/L Anion Gap 8 (3-11) BUN 10 (6-23) mg/dl Creatinine 0.97 (0.6-1.4) mg/dl Est Cr Clr Drug Dosing 133.3 ml/min Est GFR ( Amer) 120.1 ml/min Est GFR (Non-Af Amer) 103.6 ml/min BUN/Creatinine Ratio 10.3 (10-20) Glucose 81 (70-99(Fasting)) mg/dl Calcium 9.6 (8.6-10.3) mg/dl Total Bilirubin 0.4 (0.2-1.0) mg/dl AST 16 (13-39) U/L ALT 13 (7-52) U/L Alkaline Phosphatase 42 (34-104) U/L Total Protein 7.2 (6.0-8.3) gm/dl Albumin 4.4 (3.4-5.0) gm/dl Globulin 2.8 (2.5-4.0) gm/dl Albumin/Globulin Ratio 1.6 (0.9-2) SARS-CoV-2, RNA, NAAT NEGATIVE (NEGATIVE) Administered Medications Discontinued Medications Acetaminophen (Ofirmev) 1,000 mg in 100 mls @ 400 mls/hr IV NOW STA Stop: 03/23/23 23:34 Last Infusion: 03/23/23 23:45 Dose: 0 mls/hr Documented By: Admin: 03/23/23 23:29 Dose: 400 mls/hr Documented By: URVASHI Lidocaine (Lidocaine/Epineph/Tetracaine 1 Ea Syr) 2 each EXT NOW STA Stop: 03/23/23 22:17 Last Admin: 03/23/23 22:25 Dose: Not Given Documented By: GEOFF Lidocaine (Lidocaine/Epineph/Tetracaine 1 Ea Syr) Confirm Administered Dose 1 each EXT .STK-MED ONE Stop: 03/23/23 22:18 Last Admin: 03/23/23 22:24 Dose: 1 each Documented By: [facility] Imaging Data Radiologist's Impression: Abdomen/Pelvis CT 03/23/23 22:15 Exam(s): CT ABDOMEN + PELVIS Without Contrast EXAM: CT Abdomen and Pelvis Without Intravenous Contrast CLINICAL HISTORY: Reason for exam: swallowed batteries/spork/toothbrush. TECHNIQUE: Axial computed tomography images of the abdomen and pelvis without intravenous contrast. CTDI is 27.12 mGy and DLP is 1838.16 mGy-cm. Automated exposure control was utilized for the study. A dose lowering technique was utilized adhering to the principles of ALARA. COMPARISON: No relevant prior studies available. FINDINGS: Artifacts: Extensive streak artifact from the patient's handcuffs and metallic chains. Lung bases: Unremarkable. No mass. No consolidation. ABDOMEN: Liver: Unremarkable. Gallbladder and bile ducts: Unremarkable. No calcified stones. No ductal dilation. Pancreas: Unremarkable. No ductal dilation. Spleen: Unremarkable. No splenomegaly. Adrenals: Unremarkable. No mass. Kidneys and ureters: Unremarkable. No obstructing stones. No hydronephrosis. Stomach and bowel: Anastomotic sutures in the bowel, consistent with history of bowel resection. PELVIS: Appendix: No findings to suggest acute appendicitis. Bladder: Unremarkable. No stones. Reproductive: Unremarkable as visualized. ABDOMEN and PELVIS: Intraperitoneal space: Unremarkable. No free air. No significant fluid collection. Bones/joints: No acute fracture. No dislocation. Soft tissues: Extensive radiopaque foreign bodies in the stomach, which has been a clinical history of present batteries, sport, and toothbrush. There is no gastric perforation at this time. No free intraperitoneal air. Of note, 1 of the foreign bodies is fatty in attenuation. Vasculature: Unremarkable. No abdominal aortic aneurysm. Lymph nodes: Unremarkable. No enlarged lymph nodes. IMPRESSION: Extensive radiopaque foreign bodies in the stomach, which has been a clinical history of present batteries, sport, and toothbrush. No gastric perforation at this time. No free intraperitoneal air. Of note, 1 of the foreign bodies is fatty in attenuation. Electronically signed by: Jake Asencio MD 03/23/23 23:[address] 03/23/23 22:15 Exam(s): CT CHEST Without Contrast EXAM: CT Chest Without Intravenous Contrast CLINICAL HISTORY: Reason for exam: swallowed foriegn bodies. TECHNIQUE: Axial computed tomography images of the chest without intravenous contrast. CTDI is 27.12 mGy and DLP is 1838.16 mGy-cm. Automated exposure control was utilized for the study. A dose lowering technique was utilized adhering to the principles of ALARA. COMPARISON: No relevant prior studies available. FINDINGS: Lungs: Unremarkable. No mass. No consolidation. Pleural space: Unremarkable. No pneumothorax. No significant effusion. Heart: Unremarkable. No cardiomegaly. No significant pericardial effusion. No significant coronary artery calcifications. Bones/joints: Unremarkable. No acute fracture. No dislocation. Soft tissues: Linear foreign body in the distal esophagus, extending to the stomach measuring approximately 13.8 cm superior-inferior. This may represent a pen. Multiple foreign bodies in the stomach. Correlate with the concomitant abdominal CT scan report. Vasculature: Unremarkable. No thoracic aortic aneurysm. Lymph nodes: Unremarkable. No enlarged lymph nodes. IMPRESSION: 1. Linear foreign body in the distal esophagus, extending to the stomach measuring approximately 13.8 cm superior-inferior. This may represent a pen. 2. Multiple foreign bodies in the stomach. Correlate with the concomitant abdominal CT scan report. Electronically signed by: Jake Asencio MD 03/23/23 23:18 PM Discharge Plan Visit Data Chief Complaint: Laceration/Cut (Suture/Dermabond) ED Provider: Jose Sandhu Discharge Problem: Gastric foreign body, Foreign body ingestion, Simple laceration of neck, Laceration of abdominal wall Patient Disposition: [facility] Facility Condition: Good Discharge Instructions Activity Restrictions/Additional Instructions: Avoid foreign body ingestions in the future. The sutures of your abdomen will need to be removed in approximately 14 days. Monitor the abdominal wound as well as the neck for any signs of infection such as redness or discharge. [id number] Tylenol is recommended for pain. The group home infirm[facility] could monitor healing. If it anytime there are concerns or issues do not hesitate to be evaluated by the infirmary and or referred here for reevaluation. Interventions: ED Discharge Assessment Last Done: 03/24/23 00:25 Forms Stand Alone Forms: My [facility] [employer] Prescriptions Prescriptions: No Action omeprazole 40 mg Capsule,Delayed Release(Dr/Ec) 40 mg PO DAILY fluoxetine 20 mg Capsule 80 mg PO DAILY Rx Instructions: CRUSH Alvesco 160 mcg/actuation Hfa Aerosol Inhaler 1 puff INHALATION BID benztropine 0.5 mg Tablet 0.5 mg PO BID Rx Instructions: CRUSH haloperidol decanoate 100 mg/mL Solution 100 mg IM .Q2WK Rx Instructions: Q 2 WK ON FRIDAYS. once daily acyclovir 400 mg Tablet 400 mg PO BID Rx Instructions: CRUSH trazodone 150 mg Tablet 150 mg PO HS Rx Instructions: CRUSH THIS MED buspirone 30 mg Tablet 30 mg PO BID calcium polycarbophil [FiberCon] 625 mg Tablet 625 mg PO BID Rx Instructions: CRUSH montelukast [Singulair] 10 mg Tablet 10 mg PO PM albuterol sulfate 90 mcg/actuation Hfa Aerosol Inhaler 2 puff INHALATION QID PRN (Reason: Shortness Of Breath Or Wheezing) polyethylene glycol 3350 [Miralax] 17 gram/dose Powder 17 g PO DAILY Referrals Referrals: [facility]a CARRASCO [Primary Care Provider] - Gastric foreign body Qualifiers: Encounter type: initial encounter Qualified Code(s): T18.2XXA - Foreign body in stomach, initial encounter Foreign body ingestion Qualifiers: Encounter type: initial encounter Qualified Code(s): T18.9XXA - Foreign body of alimentary tract, part unspecified, initial encounter Laceration of abdominal wall Qualifiers: Encounter type: initial encounter Qualified Code(s): S31.119A - Laceration without foreign body of abdominal wall, unspecified quadrant without penetration into peritoneal cavity, initial encounter
[2023-03-23 22:41] LABS: Basophils # (auto) 0.04 K/uL (0-0.2); Basophils % (auto) 0.5 %; Eosinophils % (auto) 1.2 %; Hematocrit (blood only) 37.8 % (42.0-52.0); Hemoglobin 12.7 g/dl (14.0-18.0); Immature Granulocytes # (auto) 0.02 K/uL (0.01-0.20); Immature Granulocytes % (auto) 0.2 %; Lymphocytes % (auto) 17.3 %; Mean Corpuscular Hemoglobin 27.1 pg (25.0-34.0); Mean Corpuscular Hgb Conc 33.6 g/dL (32.0-36.0); Mean Corpuscular Volume 80.6 fL (80.0-100.0); Mean Platelet Volume 9.8 fL (9.4-12.4); Monocytes % (auto) 4.6 %; Neutrophils % (auto) 76.2 %; Platelet Count 210 K/uL (130-400); RDW Coefficient of Variation 13.5 % (11.5-14.5); RDW Standard Deviation 39.4 fL (36.4-46.3); Red Blood Count 4.69 M/uL (4.70-6.10); White Blood Count 8.66 K/ul (4.8-10.8)
[2023-03-23 22:57] LABS: Albumin Globulin Ratio 1.6 (0.9-2); Albumin Level 4.4 gm/dl (3.4-5.0); BUN Creatinine Ratio 10.3 (10-20); Bilirubin,Total 0.4 mg/dl (0.2-1.0); Calcium 9.6 mg/dl (8.6-10.3); Creatinine Clr Calc Pharmacy 133.3 ml/min; Est GFR (African American) 120.1 ml/min; Est GFR (Non-African American) 103.6 ml/min; Globulin 2.8 gm/dl (2.5-4.0); Potassium 3.7 mmol/L (3.5-5.1); Total Protein 7.2 gm/dl (6.0-8.3)
--- NOTE | 2023-03-23 23:11 | CT Scan Report ---
Exam(s): CT ABDOMEN + PELVIS Without Contrast EXAM: CT Abdomen and Pelvis Without Intravenous Contrast CLINICAL HISTORY: Reason for exam: swallowed batteries/spork/toothbrush. TECHNIQUE: Axial computed tomography images of the abdomen and pelvis without intravenous contrast. CTDI is 27.12 mGy and DLP is 1838.16 mGy-cm. Automated exposure control was utilized for the study. A dose lowering technique was utilized adhering to the principles of ALARA. COMPARISON: No relevant prior studies available. FINDINGS: Artifacts: Extensive streak artifact from the patient's handcuffs and metallic chains. Lung bases: Unremarkable. No mass. No consolidation. ABDOMEN: Liver: Unremarkable. Gallbladder and bile ducts: Unremarkable. No calcified stones. No ductal dilation. Pancreas: Unremarkable. No ductal dilation. Spleen: Unremarkable. No splenomegaly. Adrenals: Unremarkable. No mass. Kidneys and ureters: Unremarkable. No obstructing stones. No hydronephrosis. Stomach and bowel: Anastomotic sutures in the bowel, consistent with history of bowel resection. PELVIS: Appendix: No findings to suggest acute appendicitis. Bladder: Unremarkable. No stones. Reproductive: Unremarkable as visualized. ABDOMEN and PELVIS: Intraperitoneal space: Unremarkable. No free air. No significant fluid collection. Bones/joints: No acute fracture. No dislocation. Soft tissues: Extensive radiopaque foreign bodies in the stomach, which has been a clinical history of present batteries, sport, and toothbrush. There is no gastric perforation at this time. No free intraperitoneal air. Of note, 1 of the foreign bodies is fatty in attenuation. Vasculature: Unremarkable. No abdominal aortic aneurysm. Lymph nodes: Unremarkable. No enlarged lymph nodes. IMPRESSION: Extensive radiopaque foreign bodies in the stomach, which has been a clinical history of present batteries, sport, and toothbrush. No gastric perforation at this time. No free intraperitoneal air. Of note, 1 of the foreign bodies is fatty in attenuation. Electronically signed by: Jake Asencio MD 03/23/23 23:10 PM
--- NOTE | 2023-03-23 23:19 | CT Scan Report ---
Exam(s): CT CHEST Without Contrast EXAM: CT Chest Without Intravenous Contrast CLINICAL HISTORY: Reason for exam: swallowed foriegn bodies. TECHNIQUE: Axial computed tomography images of the chest without intravenous contrast. CTDI is 27.12 mGy and DLP is 1838.16 mGy-cm. Automated exposure control was utilized for the study. A dose lowering technique was utilized adhering to the principles of ALARA. COMPARISON: No relevant prior studies available. FINDINGS: Lungs: Unremarkable. No mass. No consolidation. Pleural space: Unremarkable. No pneumothorax. No significant effusion. Heart: Unremarkable. No cardiomegaly. No significant pericardial effusion. No significant coronary artery calcifications. Bones/joints: Unremarkable. No acute fracture. No dislocation. Soft tissues: Linear foreign body in the distal esophagus, extending to the stomach measuring approximately 13.8 cm superior-inferior. This may represent a pen. Multiple foreign bodies in the stomach. Correlate with the concomitant abdominal CT scan report. Vasculature: Unremarkable. No thoracic aortic aneurysm. Lymph nodes: Unremarkable. No enlarged lymph nodes. IMPRESSION: 1. Linear foreign body in the distal esophagus, extending to the stomach measuring approximately 13.8 cm superior-inferior. This may represent a pen. 2. Multiple foreign bodies in the stomach. Correlate with the concomitant abdominal CT scan report. Electronically signed by: Jake Asencio MD 03/23/23 23:18 PM
[2023-03-23] MEDS ORDERED: ACETAMINOPHEN 1,000 MG/100 ML VIAL IV STA (23:20)
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
[2023-03-23] MEDS ORDERED: fentaNYL citrate PF 100 MCG/2 ML VIAL ONE (23:55)
[2023-03-23] MEDS ORDERED: ONDANSETRON INJ 2 MG/ML 2 ML VIAL ONE (23:55)
[2023-03-23] MEDS ORDERED: LIDOCAINE 2% 2 ML VIAL/AMP(20MG/ML) INFIL ONE (23:55)
[2023-03-23] MEDS ORDERED: SUCCINYLCHOLINE CHLORIDE 20 MG/ML 10 ML VIAL IV ONE (23:55)
[2023-03-23] MEDS ORDERED: PROPOFOL IV EMULSION 10 MG/ML 20 ML VIAL IV ONE (23:55)
--- NOTE | 2023-03-24 00:32 | Anesthesiology Consultation ---
Date of Service March 24, 2023 Assessment & Plan (1) Encounter for pre-operative examination: Chart Review Chart Review: Acceptable Risk for Surgery History Surgery Operation Date: 03/24/23 00:15 Proposed Procedures p EGD Foreign Body Removal - Oc Braxton Jr, MD Height/Weight Height: 5 ft 11 in Weight: 100.5 kg Allergies Allergy/AdvReac Type Severity Reaction Status Date / Time Penicillins Allergy Severe Anaphylaxis Verified 03/23/23 22:26 Medications Home Medications Medication Instructions Recorded Confirmed Last Taken ciclesonide 160 mcg/actuation 1 puff inhalation BID 02/09/20 03/23/23 03/23/23 aerosol inhaler (Alvesco) fluoxetine 20 mg capsule 80 mg PO DAILY 02/09/20 03/23/23 03/23/23 omeprazole 40 mg capsule,delayed 40 mg PO DAILY 02/09/20 03/23/23 03/23/23 release acyclovir 400 mg tablet 400 mg PO BID 03/09/23 03/23/23 03/23/23 albuterol sulfate 90 mcg/actuation 2 puff inhalation QID PRN 03/09/23 03/23/23 Unknown aerosol inhaler Shortness Of Breath Or Wheezing benztropine 0.5 mg tablet 0.5 mg PO BID 03/09/23 03/23/23 03/23/23 buspirone 30 mg tablet 30 mg PO BID 03/09/23 03/23/23 03/23/23 calcium polycarbophil 625 mg 625 mg PO BID 03/09/23 03/23/23 03/23/23 tablet (FiberCon) haloperidol decanoate 100 mg/mL 100 mg IM .Q2WK 03/09/23 03/23/23 03/12/23 intramuscular solution montelukast 10 mg tablet 10 mg PO PM 03/09/23 03/23/23 03/23/23 (Singulair) trazodone 150 mg tablet 150 mg PO HS 03/09/23 03/23/23 03/23/23 polyethylene glycol 3350 17 17 g PO DAILY 03/23/23 03/23/23 03/21/23 gram/dose oral powder (Miralax) Past Medical History Medical History Asthma Depression Foreign body ingestion Gastric foreign body Obesity (BMI 30-39.9) Past Family History Family History Other Family history non-contributory Past Surgical History Surgical History History of esophagogastroduodenoscopy (EGD) Social History Smoking Status: Current every day smoker tobacco type: e-cigarettes Do You Dip or Chew Tobacco: No Hx Alcohol Use: No Hx Substance Use: No substance use type: does not use Physical Exam Vital Signs Last Vital Signs Temp 37.3 C 03/23/23 22:15 Pulse 84 03/24/23 00:25 Resp 18 03/24/23 00:25 BP 165/98 H 03/24/23 00:25 Pulse Ox 98 03/24/23 00:25 O2 Del Method Room Air 03/23/23 23:00 Testing Laboratory Results 03/23/23 22:22 03/23/23 22:22
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
[2023-03-24] MEDS ORDERED: ATROPINE SULFATE 0.1 MG/ML 10ML SYR IV PRN (00:41)
[2023-03-24] MEDS ORDERED: fentaNYL citrate PF 100 MCG/2 ML VIAL IV PRN (00:41)
[2023-03-24] MEDS ORDERED: ONDANSETRON INJ 2 MG/ML 2 ML VIAL IV PRN (00:41)
[2023-03-24] MEDS ORDERED: LABETALOL HCL IV 5 MG/ML 20ML IV PRN (00:41)
[2023-03-24] MEDS ORDERED: PROMETHAZINE HCL 12.5 MG in SODIUM CHLORIDE 0.9% 50 ML IV PRN ×2 (00:41→03:37)
[2023-03-24] MEDS ORDERED: KETOROLAC 30 MG/ML VIAL IV PRN (00:41)
[2023-03-24] MEDS ORDERED: fentaNYL citrate PF 100 MCG/2 ML VIAL ONE (01:18)
[2023-03-24] MEDS ORDERED: DEXAMETHASONE SOD INJ 4 MG/ML VIAL ONE (01:59)
--- NOTE | 2023-03-24 02:31 | Post Operative Brief Note ---
Immediate Post Op Note v1 Date of Surgery March 24, 2023 Pre & Post Diagnosis Operation Date: 03/24/23 00:15 Pre-Op Diagnosis: Foreign body ingestion Post-Op Diagnosis: Foreign body ingestion I identified the patient and participated in the time-out.: Yes Procedure Operation Date: 03/24/23 00:15 Actual Procedures p EGD Foreign Body Removal(Not Applicable) - Oc Braxton Jr, MD Surgeon Oc Braxton Jr, MD Milk Tester none Estimated Blood Loss 0 Findings Consistent with Post-Op Diagnosis Multiple foreign bodies iin stomach, long plastic "sporks"--multiple, one long angled toothbrush, ink pen in esophagus fell off on removal, wedged between esophagus and soft palate, ENT came in and removed Anesthesia Type General Complications none Disposition Disposition: Surgical ICU Overlapping Procedure I was immediately available: during the entire case.
[2023-03-24] MEDS ORDERED: MEPERIDINE HCL 25 MG/ML CARP/VIAL IV PRN (02:48)
[2023-03-24] MEDS ORDERED: MEPERIDINE HCL 25 MG/ML CARP/VIAL ONE (02:53)
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
--- NOTE | 2023-03-24 03:05 | Anesthesiology Progress Note ---
Date of Service March 24, 2023 Anesthesia Post Procedure Vital Signs Vital Signs: Temp Pulse Pulse Resp BP BP BP 03/24/23 02:55 35.8 C L 81 17 145/95 H 03/24/23 02:45 35.8 C L 75 20 157/78 H 03/24/23 00:25 84 18 165/98 H 03/23/23 23:00 57 L 20 03/23/23 22:38 68 23 151/86 H 03/23/23 22:37 03/23/23 22:12 65 22 03/23/23 22:15 37.3 C 67 17 138/98 Pulse Ox O2 Del Method O2 Flow Rate 03/24/23 02:55 99 Oxymask 3 03/24/23 02:45 100 Oxymask 6 03/24/23 00:25 98 03/23/23 23:00 97 Room Air 03/23/23 22:38 99 Room Air 03/23/23 22:37 99 Room Air 03/23/23 22:12 03/23/23 22:15 97 Room Air Pain Intensity Abdomen: Pain Intensity: 10 Transfer of Care Handoff Completed per policy Notes Mental Status: alert / awake / arousable Patient Amnestic to Procedure: Yes Nausea / Vomiting: adequately controlled Pain: adequately controlled Airway Patency, RR, SpO2: stable & adequate BP & HR: stable & adequate Hydration State: stable & adequate Anesthetic Complications: no major complications apparent
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
--- NOTE | 2023-03-24 03:20 | History & Physical Report ---
Date of Service March 24, 2023 Assessment & Plan (1) Foreign body ingestion: Plan: Ingestion of multiple foreign bodies Recurrent incidents secondary to self-harm intent, hx mood disorder/ antisocial personality disorder/ borderline personality disorder Inability to safely remove multiple plastic forks in patient's stomach as per endoscopist Self-inflicted razor wounds neck and abdomen Situational hypertension bronchial asthma, stable GERD on PPI chronic anemia, hemoglobin at baseline ongoing vape use Medical telemetry given elevated BP Analgesia [facility] transfer once bed available [Patient kindly accepted for transfer by hospitalist educational technology coordinator (Dr. Taveras) foll owing discussion with [facility] GI specialist, Dr. Ahn.] N.p.o. interim Psych consult re: suicidality/self-harm Suicide precautions Daily wound care Nicotine patch as needed DVT prophylaxis. SCDs (bleeding traumatic wounds) Full code Text document was generated using [employer] voice recognition software. It may contain grammatical or spelling errors. Kindly contact undersigned for clarification of any documentation item in question. History of Present Illness Chief Complaint: Foreign body ingestion, self-inflicted lacerations Primary Care Provider: DANILO Donato History obtained from patient and records. Medical history significant for mood disorder, antisocial personality disorder, borderline personality disorder, IBS, bronchial asthma, GERD, chronic anemia (baseline hemoglobin of 13), hx multiple foreign body ingestions status post endoscopic intervention, ongoing vape use. Last confinement 2 weeks ago for foreign body ingestion secondary to suicidality. Patient underwent endoscopic removal of the toothbrush, 2 energizer batteries and a sharpened paperclip. Last night, patient attempted to harm himself again by swallowing a toothbrush, 6 ports, and 2 AAA batteries. Patient also used a razor to try to cut his neck and upper belly. Bleeding wounds noted. Patient complaining of belly pain. Patient brought to ER for evaluation. Lacerations repaired at the ER. Patient underwent emergent EGD. Complicated endoscopic removal of foreign bodies as per GI specialist. Plastic forks in patient's stomach could not be removed safely. General Surgery recommended transfer to tertiary facility for advanced endoscopic services. Patient accepted for transfer at [facility] pending bed availability. Medical Historyas above Surgical History : None Family History : Cerebral aneurysm Personal/Social history : Vape use, no EtOH intake, factory work prior to incarceration Allergies Allergy/AdvReac Type Severity Reaction Status Date / Time Penicillins Allergy Severe Anaphylaxis Verified 03/23/23 22:26 Home Medications Medication Instructions Recorded Confirmed Type ciclesonide 160 mcg/actuation 1 puff inhalation BID 02/09/20 03/23/23 History aerosol inhaler (Alvesco) fluoxetine 20 mg capsule 80 mg PO DAILY 02/09/20 03/23/23 History omeprazole 40 mg capsule,delayed 40 mg PO DAILY 02/09/20 03/23/23 History release acyclovir 400 mg tablet 400 mg PO BID 03/09/23 03/23/23 History albuterol sulfate 90 mcg/actuation 2 puff inhalation QID PRN 03/09/23 03/23/23 History aerosol inhaler Shortness Of Breath Or Wheezing benztropine 0.5 mg tablet 0.5 mg PO BID 03/09/23 03/23/23 History buspirone 30 mg tablet 30 mg PO BID 03/09/23 03/23/23 History calcium polycarbophil 625 mg 625 mg PO BID 03/09/23 03/23/23 History tablet (FiberCon) haloperidol decanoate 100 mg/mL 100 mg IM .Q2WK 03/09/23 03/23/23 History intramuscular solution montelukast 10 mg tablet 10 mg PO PM 03/09/23 03/23/23 History (Singulair) trazodone 150 mg tablet 150 mg PO HS 03/09/23 03/23/23 History polyethylene glycol 3350 17 17 g PO DAILY 03/23/23 03/23/23 History gram/dose oral powder (Miralax) Past Med/Surg History Medical History Asthma Depression Foreign body ingestion Gastric foreign body Obesity (BMI 30-39.9) Surgical History History of esophagogastroduodenoscopy (EGD) Family History Other Family history non-contributory Social History Smoking Status: Current every day smoker Tobacco Type: E-cigarettes / Vaping Second Hand Exposure: No; Do You Dip or Chew Tobacco: No; Hx Alcohol Use: No Hx Substance Use: No Preferred Language: Vietnamese Communication Ability: Effective Vice President Network Development Required: No Beliefs That Will Affect Care: None Current Living Situation: Other Current Living Situation Comment: Inmate at [facility]. Feels Safe at Home: Yes Assistive Devices: None Review of Systems Review of Systems: As per HPI, all other systems reviewed and negative Physical Exam Physical Exam: GENERAL: uncomfortable, obese, no respiratory distress SKIN: Normal color, warm HEENT: pale palpebral conjunctivae, no ptosis, dry buccal mucosa NECK : Supple, dressing over neck wounds with dried blood, some tenderness CHEST : CTA, no tenderness HEART :RRR, no obvious murmurs ABDOMEN: Some distention, sutured laceration over abdomen, central abdominal tenderness EXTREMITIES : Minimal LE swelling, no LE tenderness, no other conspicuous deformities noted NEUROLOGIC : Coherent, no facial asymmetry, no other gross focality Results & Data Results & Data Vital Signs (Past 12 Hours) Vital Signs Temp Pulse Pulse Resp BP BP BP 03/24/23 02:55 35.8 C L 81 17 145/95 H 03/24/23 03:00 36.1 C L 76 20 141/90 H 03/24/23 02:45 35.8 C L 75 20 157/78 H 03/24/23 00:25 84 18 165/98 H 03/23/23 23:00 57 L 20 03/23/23 22:38 68 23 151/86 H 03/23/23 22:37 03/23/23 22:12 65 22 03/23/23 22:15 37.3 C 67 17 138/98 Pulse Ox O2 Del Method O2 Flow Rate 03/24/23 02:55 99 Oxymask 3 03/24/23 03:00 97 Room Air 03/24/23 02:45 100 Oxymask 6 03/24/23 00:25 98 03/23/23 23:00 97 Room Air 03/23/23 22:38 99 Room Air 03/23/23 22:37 99 Room Air 03/23/23 22:12 03/23/23 22:15 97 Room Air Laboratory Results Laboratory Results WBC 8.66 K/ul (4.8-10.8) 03/23/23 22:22 RBC 4.69 M/uL (4.70-6.10) L 03/23/23 22:22 Hgb 12.7 g/dl (14.0-18.0) L 03/23/23 22: Hct 37.8 % (42.0-52.0) L 03/23/23 22: MCV 80.6 fL (80.0-100.0) 03/23/23 22: MCH 27.1 pg (25.0-34.0) 03/23/23 22: MCHC 33.6 g/dL (32.0-36.0) 03/23/23: RDW Std Deviation 39.4 fL (36.4-46.3) 03/23/23: RDW Coeff of Pieter 13.5 % (11.5-14.5) 03/23/23: Plt Count 210 K/uL (130-400) 03/23/23 22: MPV 9.8 fL (9.4-12.4) 03/23/23 22: Immature Gran % (Auto) 0.2 % 03/23/23 22: Neut % (Auto) 76.2 % 03/23/23 22:22 Lymph % (Auto) 17.3 % 03/23/23 22:22 [place] % (Auto) 4.6 % 03/23/23 22:22 Eos % (Auto) 1.2 % 03/23/23 22: Baso % (Auto) 0.5 % 03/23/23: Neut # (Auto) 6.60 K/uL (1.40-6.50) H 03/23/23 22: Lymph # (Auto) 1.50 K/uL (1.2-3.4) 03/23/23 22:22 [place] # (Auto) 0.40 K/uL (0.11-0.59) 03/23/23 22: Eos # (Auto) 0.10 K/uL (0-0.50) 03/23/23 22: Baso # (Auto) 0.04 K/uL (0-0.2) 03/23/23 22: Immature Gran # (Auto) 0.02 K/uL (0.01-0.20) 03/23/23 22: Sodium 135 mmol/L (136-145) L 03/23/23 22:22 Potassium 3.7 mmol/L (3.5-5.1) 03/23/23 22:22 Chloride 100 mmol/L (98-107) 03/23/23 22:22 Carbon Dioxide 27 mmol/L (21-32) 03/23/23 22:22 Anion Gap 8 (3-11) 03/23/23 22:22 BUN 10 mg/dl (6-23) 03/23/23 22:22 Creatinine 0.97 mg/dl (0.6-1.4) 03/23/23 22:22 Est Cr Clr Drug Dosing 133.3 ml/min 03/23/23 22:22 Est GFR ( Amer) 120.1 ml/min 03/23/23 22:22 Est GFR (Non-Af Amer) 103.6 ml/min 03/23/23 22:22 BUN/Creatinine Ratio 10.3 (10-20) 03/23/23 22:22 Glucose 81 mg/dl (70-99(Fasting)) 03/23/23 22:22 Calcium 9.6 mg/dl (8.6-10.3) 03/23/23 22:22 Total Bilirubin 0.4 mg/dl (0.2-1.0) 03/23/23 22:22 AST 16 U/L (13-39) 03/23/23 22:22 ALT 13 U/L (7-52) 03/23/23 22:22 Alkaline Phosphatase 42 U/L (34-104) 03/23/23 22:22 Total Protein 7.2 gm/dl (6.0-8.3) 03/23/23 22:22 Albumin 4.4 gm/dl (3.4-5.0) 03/23/23 22:22 Globulin 2.8 gm/dl (2.5-4.0) 03/23/23 22:22 Albumin/Globulin Ratio 1.6 (0.9-2) 03/23/23 22:22 SARS-CoV-2, RNA, NAAT NEGATIVE (NEGATIVE) 03/23/23 22:00 Impressions Abdomen/Pelvis CT 03/23/23 22:15 Exam(s): CT ABDOMEN + PELVIS Without Contrast EXAM: CT Abdomen and Pelvis Without Intravenous Contrast CLINICAL HISTORY: Reason for exam: swallowed batteries/spork/toothbrush. TECHNIQUE: Axial computed tomography images of the abdomen and pelvis without intravenous contrast. CTDI is 27.12 mGy and DLP is 1838.16 mGy-cm. Automated exposure control was utilized for the study. A dose lowering technique was utilized adhering to the principles of ALARA. COMPARISON: No relevant prior studies available. FINDINGS: Artifacts: Extensive streak artifact from the patient's handcuffs and metallic chains. Lung bases: Unremarkable. No mass. No consolidation. ABDOMEN: Liver: Unremarkable. Gallbladder and bile ducts: Unremarkable. No calcified stones. No ductal dilation. Pancreas: Unremarkable. No ductal dilation. Spleen: Unremarkable. No splenomegaly. Adrenals: Unremarkable. No mass. Kidneys and ureters: Unremarkable. No obstructing stones. No hydronephrosis. Stomach and bowel: Anastomotic sutures in the bowel, consistent with history of bowel resection. PELVIS: Appendix: No findings to suggest acute appendicitis. Bladder: Unremarkable. No stones. Reproductive: Unremarkable as visualized. ABDOMEN and PELVIS: Intraperitoneal space: Unremarkable. No free air. No significant fluid collection. Bones/joints: No acute fracture. No dislocation. Soft tissues: Extensive radiopaque foreign bodies in the stomach, which has been a clinical history of present batteries, sport, and toothbrush. There is no gastric perforation at this time. No free intraperitoneal air. Of note, 1 of the foreign bodies is fatty in attenuation. Vasculature: Unremarkable. No abdominal aortic aneurysm. Lymph nodes: Unremarkable. No enlarged lymph nodes. IMPRESSION: Extensive radiopaque foreign bodies in the stomach, which has been a clinical history of present batteries, sport, and toothbrush. No gastric perforation at this time. No free intraperitoneal air. Of note, 1 of the foreign bodies is fatty in attenuation. Electronically signed by: Jake Asencio MD 03/23/23 23:[address] 03/23/23 22:15 Exam(s): CT CHEST Without Contrast EXAM: CT Chest Without Intravenous Contrast CLINICAL HISTORY: Reason for exam: swallowed foriegn bodies. TECHNIQUE: Axial computed tomography images of the chest without intravenous contrast. CTDI is 27.12 mGy and DLP is 1838.16 mGy-cm. Automated exposure control was utilized for the study. A dose lowering technique was utilized adhering to the principles of ALARA. COMPARISON: No relevant prior studies available. FINDINGS: Lungs: Unremarkable. No mass. No consolidation. Pleural space: Unremarkable. No pneumothorax. No significant effusion. Heart: Unremarkable. No cardiomegaly. No significant pericardial effusion. No significant coronary artery calcifications. Bones/joints: Unremarkable. No acute fracture. No dislocation. Soft tissues: Linear foreign body in the distal esophagus, extending to the stomach measuring approximately 13.8 cm superior-inferior. This may represent a pen. Multiple foreign bodies in the stomach. Correlate with the concomitant abdominal CT scan report. Vasculature: Unremarkable. No thoracic aortic aneurysm. Lymph nodes: Unremarkable. No enlarged lymph nodes. IMPRESSION: 1. Linear foreign body in the distal esophagus, extending to the stomach measuring approximately 13.8 cm superior-inferior. This may represent a pen. 2. Multiple foreign bodies in the stomach. Correlate with the concomitant abdominal CT scan report. Electronically signed by: Jake Asencio MD 03/23/23 23:18 PM (1) Foreign body ingestion Encounter type: initial encounter Qualified Code(s): T18.9XXA - Foreign body of alimentary tract, part unspecified, initial encounter
[2023-03-24] MEDS ORDERED: LACTATED RINGER'S 1,000 ML IV ONE (03:22)
[2023-03-24] MEDS ORDERED: MoRPHine SULFATE 4 MG/ML 1 ML CARP\\VIAL IV PRN (03:36)
[2023-03-24] MEDS ORDERED: ACETAMINOPHEN 325 MG TAB PO PRN (03:36)
[2023-03-24] MEDS ORDERED: D5W AND LACTATED RINGERS 1,000 ML IV ONE (03:39)
[2023-03-24 03:43] LABS: Magnesium 1.8 mg/dl (1.7-2.4)
[2023-03-24] MEDS ORDERED: PANTOprazole 40 MG in SYRINGE 0 ML IV ONE (04:00)
[2023-03-24] MEDS: oxyCODONE HCL IR 5 MG TAB (IMMEDIATE RELEASE) PO PRN ×3 (04:46→20:16)
[2023-03-24] MEDS ORDERED: CLINDAMYCIN/D5W 900 MG/50 ML BAG IV SCH (06:00)
[2023-03-24 06:15] LABS: Basophils # (auto) 0.03 K/uL (0-0.2); Basophils % (auto) 0.4 %; Eosinophils # (auto) 0.03 K/uL (0-0.50); Eosinophils % (auto) 0.4 %; Hematocrit (blood only) 39.1 % (42.0-52.0); Immature Granulocytes # (auto) 0.01 K/uL (0.01-0.20); Immature Granulocytes % (auto) 0.1 %; Lymphocytes # (auto) 0.89 K/uL (1.2-3.4); Lymphocytes % (auto) 11.1 %; Mean Corpuscular Hemoglobin 27.1 pg (25.0-34.0); Mean Corpuscular Hgb Conc 33.2 g/dL (32.0-36.0); Mean Corpuscular Volume 81.5 fL (80.0-100.0); Mean Platelet Volume 9.8 fL (9.4-12.4); Monocytes # (auto) 0.13 K/uL (0.11-0.59); Monocytes % (auto) 1.6 %; Neutrophils # (auto) 6.95 K/uL (1.40-6.50); Neutrophils % (auto) 86.4 %; Platelet Count 209 K/uL (130-400); RDW Coefficient of Variation 13.4 % (11.5-14.5); RDW Standard Deviation 39.8 fL (36.4-46.3); White Blood Count 8.04 K/ul (4.8-10.8)
[2023-03-24 06:30] LABS: BUN Creatinine Ratio 9.4 (10-20); Calcium 9.4 mg/dl (8.6-10.3); Creatinine Clr Calc Pharmacy 150.6 ml/min; Est GFR (African American) 134.6 ml/min; Est GFR (Non-African American) 116.1 ml/min
[2023-03-24] MEDS: FLUTICASONE FUROATE 100MCG 14 PUFFS/INHALER INH SCH (08:25)
[2023-03-24] MEDS: FLUoxetine HCL 20 MG CAP PO SCH (08:28)
[2023-03-24] MEDS: ACYCLOVIR 400 MG TAB PO SCH ×2 (08:28→20:15)
[2023-03-24] MEDS: busPIRone 15 MG TAB PO SCH ×2 (08:28→20:15)
[2023-03-24] MEDS: BENZTROPINE MESYLATE 0.5 MG TAB PO SCH ×2 (08:28→20:14)
[2023-03-24] MEDS ORDERED: POLYETHYLENE (MIRALAX) 17 GM PACK PO SCH (09:00)
--- NOTE | 2023-03-24 11:02 | Psychiatric Consultation ---
Date of Consultation March 24, 2023 Impression / Recommendations Impression 32 y/o man with severe personality pathology and a history of many episodes of ingestion of objects. He most likely does have depressive mood symptoms, but there appears to be a fairly clear identifiable external reward ("secondary gain") for which he hopes. (1) Antisocial personality disorder: Present on Admission?: Yes (2) Borderline personality disorder: Present on Admission?: Yes (3) Self-injurious behavior: Present on Admission?: Yes Plan Continue haloperidol decanoate 100 mg IM every 2 weeks on Wednesday, next due 03/26/2023. Fluoxetine is available in a 20 mg/5 mL solution, so his dose would be 20 mL/day of that form. In all likelihood he's swallowing much more saliva and buccal mucosal cells than that per hour, so consider using this to avoid interrupting treatment. If he truly must be completely NPO, then fluoxetine should be resumed as soon as practicable. If significant dystonia is seen (and I see none today), then benztropine 0.5 mg IM BID PRN dystonia would be an appropriate interim replacement for the sche duled oral benztropine. It would be appropriate eventually to resume buspirone, but this could be undertaken when he's returned from whence he came. Psych History Identifying Data CODEY DOMINGUEZ is a 32-year-old male with a history of Antisocial Personality Disorder and Borderline Personality Disorder, admitted on 03/23/2023 for multiple object ingestion. Consult is by the hospitalist service for "suicidality". Chief Complaint "[]". History of Present Illness As part of a thorough review of the available medical records, I have read and confirmed the following note by the ED physician: "Patient is a 32-year-old gentleman history of mood disorder, borderline personality sorter, IBS, GERD, multiple prior foreign body ingestions [facility] after ingesting additional foreign bodies and attempting to cut his neck and abdomen. This was an attempt to harm himself but then thought about his children and changed his mind. Patient by his report swallowed a toothbrush, 6 ports, and 2 AAA batteries. Patient states he used a razor to try to cut his neck and did cut the upper portion of his abdomen. Some pain at the cut sites. Denies difficulty swallowing at this point. States he had his tetanus shot about 4 to 5 months ago. Denies other significant ingestion. States he thought about his children and change his mind about wanting to end his life so did not cut deeper and contacted for help. Bandaging applied by EMS and brought here with controlled bleeding. No anticoagulation reported." Pt ingested multiple objects in state half-way and came to the ED. He had a pen lodged in his nasopharynx which was removed by ENT and a toothbrush, batteries, and 2 plastic sporks in his stomach that could not safely be removed endoscopically. Surgery expressed the opinion that safe removal will require transfer to a facility with more specialized resources. Pt has a history of very similar behaviors in the past with 6 previous admissions to this hospital: 03/09/2023 after ingesting 2 pens, a toothbrush, 2 batteries, and a paperclip 03/19/2020 after ingesting 4 plastic spoons 02/09/2020 after ingesting 4 plastic spoons 03/07/2019 after ingesting 4 plastic spoons 02/15/2019 after ingesting 2 plastic spoons 02/07/2019 after ingesting 2 plastic spoons. Records from [facility] document preceding history of similar ingestions, with at least one perforation. It is not clear what measures are in place at the half-way to limit his access to or ability to retain items such as spoons/sporks, pens, toothbrushes, batteries, and paperclips given his marked propensity to ingest such items. He has previously been assigned diagnoses of antisocial personality disorder and borderline personality disorder and has a history of traumatic brain injury. PA Where records show that current psychiatric medications include fluoxetine 60 mg PO DAILY benztropine 0.5 mg PO BID buspirone 30 mg PO BID haloperidol decanoate 100 mg IM Q2WK (next due 03/26/2023) trazodone 150 mg QHS Pt tells me "it all got to be too much" so he ingested the items and cut his abdomen and neck with a razor. When I asked him what the goal was in doing these things he had difficulty understanding the question, then eventually said he wants "to go to the ICU instead of the BMU" because the latter is more restrictive. I suggested that if his goal is to get to a less-restrictive unit it's probably better not to engage in behaviors that might be more preventable in a more-restricted setting. He didn't seem to get my point. Pt says he used to cut himself prior to incarceration 13 years ago but never ingested objects. Past Psychiatric History Previous Psych History: 6 previous admissions here for strickingly similar behaviors over the past 4 years Current Psychiatric Diagnosis: Antisocial Personality Disorder, Borderline Personality Disorder Do You Have Access To A Gun?: No History of Previous Suicide Attempt: Yes (numerous foreign object ingestions in what he says were suicide attempts) Allergies Allergy/AdvReac Type Severity Reaction Status Date / Time Penicillins Allergy Severe Anaphylaxis Verified 03/23/23 22:26 Home Medications Medication Instructions Recorded Confirmed Type ciclesonide 160 mcg/actuation 1 puff inhalation BID 02/09/20 03/23/23 History aerosol inhaler (Alvesco) fluoxetine 20 mg capsule 80 mg PO DAILY 02/09/20 03/23/23 History omeprazole 40 mg capsule,delayed 40 mg PO DAILY 02/09/20 03/23/23 History release acyclovir 400 mg tablet 400 mg PO BID 03/09/23 03/23/23 History albuterol sulfate 90 mcg/actuation 2 puff inhalation QID PRN 03/09/23 03/23/23 History aerosol inhaler Shortness Of Breath Or Wheezing benztropine 0.5 mg tablet 0.5 mg PO BID 03/09/23 03/23/23 History buspirone 30 mg tablet 30 mg PO BID 03/09/23 03/23/23 History calcium polycarbophil 625 mg 625 mg PO BID 03/09/23 03/23/23 History tablet (FiberCon) haloperidol decanoate 100 mg/mL 100 mg IM .Q2WK 03/09/23 03/23/23 History intramuscular solution montelukast 10 mg tablet 10 mg PO PM 03/09/23 03/23/23 History (Singulair) trazodone 150 mg tablet 150 mg PO HS 03/09/23 03/23/23 History polyethylene glycol 3350 17 17 g PO DAILY 03/23/23 03/23/23 History gram/dose oral powder (Miralax) Patient History Medical History Asthma Depression Foreign body ingestion Gastric foreign body Obesity (BMI 30-39.9) Surgical History History of esophagogastroduodenoscopy (EGD) Family History Other Family history non-contributory Social History Smoking Status: Current every day smoker Tobacco Type: E-cigarettes / Vaping Second Hand Exposure: No; Do You Dip or Chew Tobacco: No; Tobacco Cessation Education Requested by Patient: No Hx Alcohol Use: No Hx Substance Use: No Preferred Language: Faroese Communication Ability: Unable Postmaster Required: No Beliefs That Will Affect Care: None Current Living Situation: Other Current Living Situation Comment: Inmate at [facility] [place] Other Information That Helps Us Care for You: No Feels Safe at Home: Yes Safety Concerns: Feels Safe At This Time Assistive Devices: None Physical Exam Vital Signs (Past 24 Hours): Last Vital Signs Temp 36.6 C 03/24/23 07:45 Pulse 60 03/24/23 07:45 Resp 18 03/24/23 07:45 BP 119/70 03/24/23 07:45 Pulse Ox 97 03/24/23 07:45 O2 Del Method Room Air 03/24/23 07:45 O2 Flow Rate 3 03/24/23 02:55 Exam Statement: I've reviewed the exam from the ED and hospitalist Review of Systems Psychiatric: as per Subjective / HPI, + depression, + abnormal sleep pattern and + suicidal ideation Results & Data (PSY) Medications Administered Acyclovir (Acyclovir 400 Mg Tab) 400 mg PO BID JESÚS Stop: 04/23/23 08:59 Last Admin: 03/24/23 08:28 Dose: Not Given Documented By: ALBARO Benztropine Mesylate (Benztropine Mesylate 0.5 Mg Tab) 0.5 mg PO BID JESÚS Stop: 04/23/23 08:59 Last Admin: 03/24/23 08:28 Dose: Not Given Documented By: ALBARO Buspirone HCl (Buspirone 15 Mg Tab) 30 mg PO BID JESÚS Stop: 04/23/23 08:59 Last Admin: 03/24/23 08:28 Dose: Not Given Documented By: ALBARO Fluoxetine HCl (Fluoxetine Hcl 20 Mg Cap) 80 mg PO DAILY JESÚS Stop: 04/23/23 08:59 Last Admin: 03/24/23 08:28 Dose: Not Given Documented By: ALBARO Fluticasone Furoate (Fluticasone Furoate 100mcg 14 Puffs/Inhaler) 1 puffs INH DAILY JESÚS Stop: 04/23/23 08:59 Last Admin: 03/24/23 08:25 Dose: 1 puffs Documented By: ALBARO Dextrose/Lactated Ringer's (D5w And Lactated Ringers) 1,000 mls @ 50 mls/hr IV .Q20H ONE Stop: 03/24/23 23:38 Last Admin: 03/24/23 04:45 Dose: 50 mls/hr Documented By: ALESSANDRO Morphine Sulfate (Morphine Sulfate 4 Mg/Ml 1 Ml Carp\\Vial) 4 mg IV Q6H PRN PRN Reason: Pain Stop: 04/07/23 03:35 Last Admin: 03/24/23 08:26 Dose: 4 mg Documented By: ALBARO Oxycodone HCl (Oxycodone Hcl Ir 5 Mg Tab (Immediate Release)) 5 mg PO Q4H PRN PRN Reason: Pain Stop: 04/07/23 03:35 Last Admin: 03/24/23 04:46 Dose: 5 mg Documented By: ALESSANDRO Coding Level of Care Code 31787 IN/OBS CONSULT LVL 4,60M Diagnoses Antisocial personality disorder F60.2 Borderline personality disorder F60.3 Self-injurious behavior Z72.89 Time Spent (min) 65
--- NOTE | 2023-03-24 12:49 | Gastroenterology Progress Note ---
Date of Service March 24, 2023 Assessment & Plan (1) Foreign body ingestion: Plan: [facility] has refused to accept patient. Objects cannot be removed endoscopically. Suggest recalling surgery Admission and Anticipated Discharge Date Admission Date: March 24, 2023 Subjective Foreign body ingestion Results & Data Vital Signs (Past 12 Hours) Vital Signs Temp Pulse Resp BP BP Pulse Ox O2 Del Method 03/24/23 12:35 Room Air 03/24/23 11:10 67 18 129/80 96 Room Air 03/24/23 07:45 36.6 C 60 18 119/70 97 Room Air 03/24/23 04:43 Room Air 03/24/23 04:28 36.9 C 74 16 127/73 98 Room Air 03/24/23 03:20 36.1 C L 75 22 150/89 H 96 Room Air 03/24/23 02:55 35.8 C L 81 17 145/95 H 99 Oxymask 03/24/23 03:45 36.2 C L 70 21 146/85 H 99 Room Air 03/24/23 03:32 69 20 145/86 H 96 Room Air 03/24/23 03:10 36.1 C L 77 20 157/80 H 96 Room Air 03/24/23 03:00 36.1 C L 76 20 141/90 H 97 Room Air 03/24/23 02:45 35.8 C L 75 20 157/78 H 100 Oxymask O2 Flow Rate 03/24/23 12:35 03/24/23 11:10 03/24/23 07:45 03/24/23 04:43 03/24/23 04:28 03/24/23 03:20 03/24/23 02:55 3 03/24/23 03:45 03/24/23 03:32 03/24/23 03:10 03/24/23 03:00 03/24/23 02:45 6 (1) Foreign body ingestion Encounter type: initial encounter Qualified Code(s): T18.9XXA - Foreign body of alimentary tract, part unspecified, initial encounter
--- NOTE | 2023-03-24 14:55 | Communication Note ---
Date of Service: March 24, 2023 Patient seen and examined at bedside. He is lying in the bed comfortably; not in distress. Reports abdominal discomfort. On physical examination Constitutional: WD/WN, vitals as above, NAD, sitting up in bed, pleasant, conversing easily Head: Normocephalic, Atraumatic Respiratory: normal respiratory effort, lungs clear to auscultation, no wheeze, rales, rhonchi. Normal insp/exp effort, no accessory muscle use Cardiovascular: RRR, no murmur, no edema Vessels: no JVD or carotid bruit Chest: normal inspection of chest Abdomen: Midline incision clean dry intact. Tenderness in periumbilical region Musculoskeletal: no cyanosis or clubbing, extremities motor strength 5/5 Skin: no rashes, warm and dry normal turgor Neurologic: PERRL, EOMI, accommodation nl, no face palsy, no dysarthria CN's II- XI intact bilaterally and moves all extremities Psychiatric: A+Ox3, euthymic affect Lymphatic: no cervical or axillary lymphadenopathy : deferred Assessment/plan Foreign body ingestion: Current history of foreign body ingestion. Underwent endoscopy in the morning. Multiple foreign objects seen in the abdomen. Unable to be safely removed endoscopically today. Patient initially accepted at [facility]. Dr. West from [facility] discussed with GI here to coordinate care. Patient to undergo surgical removal tomorrow AM by surgery. Repeated suicide attempts; psychiatry on board. Appreciate recommendation. Continue home psychiatric meds.
--- NOTE | 2023-03-24 15:07 | Surgery Progress Note ---
Date of Service March 24, 2023 Assessment & Plan (1) Foreign body alimentary tract: Plan: difficulty with endoscopic removal considering Surgical Laparotomy and gastrotomy tomorrow am with possible prior endoscopy attempt For CT early am to assess foreign body location Then OR as above later in am Admission and Anticipated Discharge Date Admission Date: March 24, 2023 Results & Data Vital Signs (Past 12 Hours) Vital Signs Temp Pulse Resp BP Pulse Ox O2 Del Method 03/24/23 14:57 36.5 C 61 18 122/72 98 Room Air 03/24/23 12:35 Room Air 03/24/23 11:10 67 18 129/80 96 Room Air 03/24/23 07:45 36.6 C 60 18 119/70 97 Room Air 03/24/23 04:43 Room Air 03/24/23 04:28 36.9 C 74 16 127/73 98 Room Air 03/24/23 03:20 36.1 C L 75 22 150/89 H 96 Room Air 03/24/23 03:45 36.2 C L 70 21 146/85 H 99 Room Air 03/24/23 03:32 69 20 145/86 H 96 Room Air 03/24/23 03:10 36.1 C L 77 20 157/80 H 96 Room Air PG Care Time/CCT Total # of Minutes Spent Total Time Spent with Patient: Total time spent is greater than 50% in coordination of care (as documented) at patient's floor/unit and/or counseling patient: Coding Level of Care Code None Diagnoses Foreign body alimentary tract T18.9XXA
[2023-03-24] MEDS ORDERED: traZODone HCL 50 MG TAB PO SCH (21:00)
[2023-03-24] MEDS ORDERED: MONTELUKAST SODIUM 10 MG TABLET PO SCH (21:00)
[2023-03-24] MEDS: MoRPHine SULFATE 4 MG/ML 1 ML CARP\\VIAL IV PRN (23:15)
[2023-03-25] MEDS: MoRPHine SULFATE 4 MG/ML 1 ML CARP\\VIAL IV PRN (05:59)
[2023-03-25 06:50] LABS: Potassium 3.7 mmol/L (3.5-5.1)
[2023-03-25 06:56] LABS: BUN Creatinine Ratio 11.8 (10-20); Creatinine Clr Calc Pharmacy 137.6 ml/min; Est GFR (African American) 126.3 ml/min
--- NOTE | 2023-03-25 07:30 | Surgery Progress Note ---
Date of Service March 25, 2023 Assessment & Plan (1) Foreign body ingestion: Plan: Patient with retained foreign bodies likely in the stomach For CT scan this morning to assess locale of the foreign bodies Discussing with GI possibility of trying endoscopic removal If this cannot be done patient is scheduled for exploratory laparotomy with gastrotomy Apparently transfer has been refused by tertiary hospital Feeling that this can be performed at our hospital I have discussed this with the patient and he seems to understand Admission and Anticipated Discharge Date Admission Date: March 24, 2023 Subjective Patient awake and alert vital signs are stable Transferred event [facility] refused Discussing with GI possible second attempt at removal of foreign bodies From the stomach Review of Systems Review of Systems: All systems reviewed & are unremarkable except as noted in HPI & below Physical Exam Physical Exam: Patient is awake and alert in no distress Constitutional: no acute distress Eyes: + anicteric sclerae Respiratory: normal respiratory effort; no respiratory distress Cardiovascular: Rate/Rhythm: regular rate Gastrointestinal (Abdomen): Inspection/Auscultation: abdomen normal to inspection; abdomen not distended Musculoskeletal: Head/Neck/Chest: head atraumatic Skin: no rashes, warm and dry Neurologic: awake Psychiatric: Orientation: alert Results & Data Vital Signs (Past 12 Hours) Vital Signs Temp Pulse Pulse Resp BP Pulse Ox O2 Del Method 03/25/23 07:12 36.4 C L 48 L 18 110/66 97 Room Air 03/25/23 05:31 36.5 C 53 L 18 123/71 97 Room Air 03/24/23 23:35 58 L 03/24/23 23:05 36.4 C L 59 L 20 146/82 H 98 Room Air 03/24/23 22:18 36.6 C 60 97 H 111/66 96 Room Air 03/24/23 19:33 37.1 C 54 L 18 114/72 98 Room Air PG Care Time/CCT Total # of Minutes Spent Total Time Spent with Patient: Total time spent is greater than 50% in coordination of care (as documented) at patient's floor/unit and/or counseling patient: Coding Level of Care Code 75466 SUB INP/OBS CARE 2/35MIN Diagnoses Foreign body ingestion T18.9XXA Encounter type: initial encounter (1) Foreign body ingestion Encounter type: initial encounter Qualified Code(s): T18.9XXA - Foreign body of alimentary tract, part unspecified, initial encounter
[2023-03-25 08:33] LABS: Basophils # (auto) 0.01 K/uL (0-0.2); Basophils % (auto) 0.1 %; Eosinophils # (auto) 0.06 K/uL (0-0.50); Eosinophils % (auto) 0.7 %; Hematocrit (blood only) 38.2 % (42.0-52.0); Hemoglobin 12.6 g/dl (14.0-18.0); Immature Granulocytes # (auto) 0.01 K/uL (0.01-0.20); Immature Granulocytes % (auto) 0.1 %; Lymphocytes # (auto) 1.62 K/uL (1.2-3.4); Lymphocytes % (auto) 18.8 %; Mean Corpuscular Hemoglobin 27.2 pg (25.0-34.0); Mean Corpuscular Volume 82.5 fL (80.0-100.0); Mean Platelet Volume 10.3 fL (9.4-12.4); Monocytes # (auto) 0.66 K/uL (0.11-0.59); Monocytes % (auto) 7.7 %; Neutrophils # (auto) 6.26 K/uL (1.40-6.50); Neutrophils % (auto) 72.6 %; Platelet Count 210 K/uL (130-400); RDW Coefficient of Variation 13.9 % (11.5-14.5); RDW Standard Deviation 41.3 fL (36.4-46.3); Red Blood Count 4.63 M/uL (4.70-6.10); White Blood Count 8.62 K/ul (4.8-10.8)
--- NOTE | 2023-03-25 08:35 | CT Scan Report ---
ABDOMEN AND PELVIS CT WITHOUT CONTRAST CT DOSE: 1213.80 mGy.cm HISTORY: Follow-up gastric foreign bodies TECHNIQUE: Multiaxial CT images of the abdomen and pelvis were performed without contrast. A dose lo wering technique was utilized adhering to the principles of ALARA. COMPARISON STUDY: Abdomen and pelvis CT 03/23/2023. FINDINGS: There is a stable 3 mm nodule within the right middle lobe on image 10. A few bibasilar junito ear densities consistent with no definite pneumoperitoneum or pneumatosis. There is a punctate focus of gas within the left upper quadrant on image 56 which is likely within the gastric lumen. No surrou nding fluid to suggest a gastric perforation. Multiple linear plastic foreign bodies are seen through out the stomach. One of these linear foreign bodies is primarily fat density. These are similar to th e prior study. No foreign bodies within the distal esophagus. There are 2 metallic foreign bodies wit hin the cecum/ascending colon consistent with ingested batteries. These are similar position to the p rior study. Mildly dilated gas and stool-filled colon. No evidence for a bowel obstruction. No pelvic free fluid. Anastomotic suture material noted at the transverse colon. No pneumoperitoneum. No pneum atosis. The unenhanced liver, gallbladder, spleen, adrenal glands, and pancreas unremarkable. There i s a punctate left renal stone. Normal right kidney. No ureteral stones. No hydronephrosis. No retrope ritoneal lymphadenopathy. Normal caliber abdominal aorta. The bladder is unremarkable. Normal appendi x. IMPRESSION: 1. No change in the radiopaque foreign bodies within the stomach and ascending colon/cecum as describ ed above. 2. No evidence for a bowel obstruction. 3. There is a punctate focus of gas within the left upper quadrant which is likely within the gastric fundus. A small focus of extraluminal gas is considered less likely given the lack of adjacent fluid but not entirely excluded. Therefore, the patient's symptoms continue to progress consider follow-up CT examination to ensure stability and to exclude the less likely possibility of a microperforation at this location. ACT 112: Negative or not required by law. Electronically signed by: Eagle Phillips M.D. 03/25/2023 8:32 AM
[2023-03-25] MEDS: BENZTROPINE MESYLATE 0.5 MG TAB PO SCH (08:50)
[2023-03-25] MEDS: busPIRone 15 MG TAB PO SCH (08:50)
[2023-03-25] MEDS: ACYCLOVIR 400 MG TAB PO SCH (08:50)
[2023-03-25] MEDS: FLUoxetine HCL 20 MG CAP PO SCH (08:51)
[2023-03-25] MEDS: FLUTICASONE FUROATE 100MCG 14 PUFFS/INHALER INH SCH (08:52)
[2023-03-25] MEDS ORDERED: LIDOCAINE 2% 2 ML VIAL/AMP(20MG/ML) INFIL ONE (09:48)
[2023-03-25] MEDS ORDERED: PROPOFOL IV EMULSION 10 MG/ML 20 ML VIAL IV ONE (09:48)
[2023-03-25] MEDS ORDERED: MIDAZOLAM HCL 1 MG/ML 2ML VIAL ONE (09:49)
[2023-03-25] MEDS ORDERED: fentaNYL citrate PF 100 MCG/2 ML VIAL ONE (09:49)
--- NOTE | 2023-03-25 09:51 | History & Physical Report ---
Date of Service March 25, 2023 Assessment & Plan (1) Foreign body ingestion: Plan: EGD in the OR today Admission and Anticipated Discharge Date Admission Date: March 24, 2023 History of Present Illness Chief Complaint: See chart for details prior to my involvement. 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 I was asked to re-attempt removal of objects int he OR endoscopically. If not successful, prepared to remove surgically. Consent obtained from patient. Primary Care Provider: DANILO Donato Allergies Allergy/AdvReac Type Severity Reaction Status Date / Time Penicillins Allergy Severe Anaphylaxis Verified 03/23/23 22:26 Home Medications Medication Instructions Recorded Confirmed Type ciclesonide 160 mcg/actuation 1 puff inhalation BID 02/09/20 03/23/23 History aerosol inhaler (Alvesco) fluoxetine 20 mg capsule 80 mg PO DAILY 02/09/20 03/23/23 History omeprazole 40 mg capsule,delayed 40 mg PO DAILY 02/09/20 03/23/23 History release acyclovir 400 mg tablet 400 mg PO BID 03/09/23 03/23/23 History albuterol sulfate 90 mcg/actuation 2 puff inhalation QID PRN 03/09/23 03/23/23 History aerosol inhaler Shortness Of Breath Or Wheezing benztropine 0.5 mg tablet 0.5 mg PO BID 03/09/23 03/23/23 History buspirone 30 mg tablet 30 mg PO BID 03/09/23 03/23/23 History calcium polycarbophil 625 mg 625 mg PO BID 03/09/23 03/23/23 History tablet (FiberCon) haloperidol decanoate 100 mg/mL 100 mg IM .Q2WK 03/09/23 03/23/23 History intramuscular solution montelukast 10 mg tablet 10 mg PO PM 03/09/23 03/23/23 History (Singulair) trazodone 150 mg tablet 150 mg PO HS 03/09/23 03/23/23 History polyethylene glycol 3350 17 17 g PO DAILY 03/23/23 03/23/23 History gram/dose oral powder (Miralax) Past Med/Surg History Medical History Asthma Depression Foreign body ingestion Gastric foreign body Obesity (BMI 30-39.9) Surgical History History of esophagogastroduodenoscopy (EGD) Family History Other Family history non-contributory Social History Smoking Status: Current every day smoker Tobacco Type: E-cigarettes / Vaping Second Hand Exposure: No; Do You Dip or Chew Tobacco: No; Tobacco Cessation Education Requested by Patient: No Hx Alcohol Use: No Hx Substance Use: No Preferred Language: Faroese Communication Ability: Unable 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 Beliefs That Will Affect Care: None Current Living Situation: Other Current Living Situation Comment: Inmate at [facility] , [place] Other Information That Helps Us Care for You: No Feels Safe at Home: Yes Safety Concerns: Feels Safe At This Time Assistive Devices: None Review of Systems All systems reviewed & are unremarkable except as noted in HPI & below Physical Exam Constitutional: WD/WN, vitals as above Respiratory: normal respiratory effort, lungs clear to auscultation Cardiovascular: RRR, no murmur, no edema Gastrointestinal (Abdomen): normal bowel sounds, soft, nontender, no hepatosplenomegaly Results & Data Vital Signs (Past 12 Hours) Vital Signs Temp Pulse Pulse Resp BP Pulse Ox O2 Del Method 03/25/23 07:12 36.4 C L 48 L 18 110/66 97 Room Air 03/25/23 05:31 36.5 C 53 L 18 123/71 97 Room Air 03/24/23 23:35 58 L 03/24/23 23:05 36.4 C L 59 L 20 146/82 H 98 Room Air 03/24/23 22:18 36.6 C 60 97 H 111/66 96 Room Air (1) Foreign body ingestion Encounter type: initial encounter Qualified Code(s): T18.9XXA - Foreign body of alimentary tract, part unspecified, initial encounter
[2023-03-25] MEDS ORDERED: PANTOprazole 40 MG in SYRINGE 0 ML IV SCH (11:00)
--- NOTE | 2023-03-25 11:08 | Anesthesiology Consultation ---
Date of Service March 25, 2023 Assessment & Plan Chart Review Chart Review: Acceptable Risk for Surgery and Patient NOT seen in Pre Admission Testing Consults Requested none ASA ASA2 Proposed Anesthesia Anesthesia Type: General Risk / Benefits Reviewed With: PT / POA / Parent / Guardian, Accepts Plan and Informed Consent Obtained History Surgery Operation Date: 03/24/23 00:15 Proposed Procedures p EGD Foreign Body Removal - Oc Braxton Jr, MD Operation Date: 03/25/23 10:45 Proposed Procedures p Exploratory Laparotomy, Gastrotomy with Foreign Body Removal - Rambo Mohamud MD, FACS s Esophagogastroduodenoscopy Foreign Body Removal - Delaney Cerna, Height/Weight Height: 5 ft 11 in Weight: 98.4 kg Allergies Allergy/AdvReac Type Severity Reaction Status Date / Time Penicillins Allergy Severe Anaphylaxis Verified 03/23/23 22:26 Medications Home Medications Medication Instructions Recorded Confirmed Last Taken ciclesonide 160 mcg/actuation 1 puff inhalation BID 02/09/20 03/23/23 03/23/23 aerosol inhaler (Alvesco) fluoxetine 20 mg capsule 80 mg PO DAILY 02/09/20 03/23/23 03/23/23 omeprazole 40 mg capsule,delayed 40 mg PO DAILY 02/09/20 03/23/23 03/23/23 release acyclovir 400 mg tablet 400 mg PO BID 03/09/23 03/23/23 03/23/23 albuterol sulfate 90 mcg/actuation 2 puff inhalation QID PRN 03/09/23 03/23/23 Unknown aerosol inhaler Shortness Of Breath Or Wheezing benztropine 0.5 mg tablet 0.5 mg PO BID 03/09/23 03/23/23 03/23/23 buspirone 30 mg tablet 30 mg PO BID 03/09/23 03/23/23 03/23/23 calcium polycarbophil 625 mg 625 mg PO BID 03/09/23 03/23/23 03/23/23 tablet (FiberCon) haloperidol decanoate 100 mg/mL 100 mg IM .Q2WK 03/09/23 03/23/23 03/12/23 intramuscular solution montelukast 10 mg tablet 10 mg PO PM 03/09/23 03/23/23 03/23/23 (Singulair) trazodone 150 mg tablet 150 mg PO HS 03/09/23 03/23/23 03/23/23 polyethylene glycol 3350 17 17 g PO DAILY 03/23/23 03/23/23 03/21/23 gram/dose oral powder (Miralax) Active Medications Generic Name Dose Route Start Last Admin Trade Name Freq PRN Reason Stop Dose Admin Acyclovir 400 mg 03/24/23 09:00 03/25/23 08:50 Acyclovir 400 Mg Tab PO 04/23/23 08:59 400 mg BID JESÚS Administration Benztropine Mesylate 0.5 mg 03/24/23 09:00 03/25/23 08:50 Benztropine Mesylate 0.5 Mg Tab PO 04/23/23 08:59 0.5 mg BID JESÚS Administration Buspirone HCl 30 mg 03/24/23 09:00 03/25/23 08:50 Buspirone 15 Mg Tab PO 04/23/23 08:59 30 mg BID JESÚS Administration Fluoxetine HCl 80 mg 03/24/23 09:00 03/25/23 08:51 Fluoxetine Hcl 20 Mg Cap PO 04/23/23 08:59 80 mg DAILY JESÚS Administration Fluticasone Furoate 1 puffs 03/24/23 09:00 03/25/23 08:52 Fluticasone Furoate 100mcg 14 Puffs/Inhaler INH 04/23/23 08:59 1 puffs DAILY JESÚS Administration Montelukast Sodium 10 mg 03/24/23 21:00 03/24/23 20:13 Montelukast Sodium 10 Mg Tablet PO 04/23/23 20:59 10 mg PM JESÚS Administration Morphine Sulfate 2 mg 03/24/23 15:05 03/25/23 05:59 Morphine Sulfate 4 Mg/Ml 1 Ml Carp\Vial IV 04/07/23 03:35 2 mg Q3H PRN Administration Pain Oxycodone HCl 5 mg 03/24/23 03:36 03/24/23 20:16 Oxycodone Hcl Ir 5 Mg Tab (Immediate Release) PO 04/07/23 03:35 5 mg Q4H PRN Administration Pain Trazodone HCl 150 mg 03/24/23 21:00 03/24/23 20:14 Trazodone Hcl 50 Mg Tab PO 04/23/23 20:59 150 mg HS JESÚS Administration NPO Date Last Intake of Fluids: 03/23/23 Time Last Intake of Fluids: 21:00 Date Last Intake of Solids: 03/23/23 Time Last Intake of Solids: 21:00 Last Intake of Solids Comment: Unsure - foreign bodies in stomach Past Medical History Medical History Asthma Depression Foreign body ingestion Gastric foreign body Obesity (BMI 30-39.9) Exercise / Class Metabolic Activity II 4-5 Yardwork/Stairs/Walk up hill Past Family History Family History Other Family history non-contributory Past Surgical History Surgical History History of esophagogastroduodenoscopy (EGD) Past Anesthesia History No Hx of Anesthesia Complications and No Family Hx of Anesthesia Complications History of PONV No Hx of PONV and No Hx of Motion Sickness Social History Smoking Status: Current every day smoker tobacco type: e-cigarettes Do You Dip or Chew Tobacco: No Hx Alcohol Use: No Hx Substance Use: No substance use type: does not use Physical Exam Vital Signs Last Vital Signs Temp 36.5 C 03/25/23 10:28 Pulse 53 L 03/25/23 10:28 Resp 16 03/25/23 10:28 BP 121/73 03/25/23 10:28 Pulse Ox 100 03/25/23 10:28 O2 Del Method Room Air 03/25/23 10:28 O2 Flow Rate 3 03/24/23 02:55 Constitutional + obese; no acute distress ENMT Mouth: + dentition abnormality and + poor dentition Thyromental Distance: > or= 3.5 Finger Breadths Mallampati Class: II Neck normal visual inspection and trachea midline; neck extension not limited Respiratory normal respiratory effort Auscultation: lungs clear to auscultation bilaterally Cardiovascular Rate/Rhythm: regular rate and regular rhythm Heart Sounds: no murmur Musculoskeletal Spine: + limited cervical ROM; no pain with cervical ROM Extremities: full ROM of extremities Neurologic moves all extremities Motor/Sensory: no sensory deficit Psychiatric Orientation: alert and oriented x 3 Testing Laboratory Results 03/25/23 05:53 03/25/23 05:53
[2023-03-25] MEDS ORDERED: ROCURONIUM BROMIDE 10 MG/ML 5 ML VIAL IV ONE (11:44)
[2023-03-25] MEDS ORDERED: SUCCINYLCHOLINE CHLORIDE 20 MG/ML 10 ML VIAL IV ONE (11:44)
[2023-03-25] MEDS ORDERED: ONDANSETRON INJ 2 MG/ML 2 ML VIAL ONE (11:44)
[2023-03-25] MEDS ORDERED: DEXAMETHASONE SOD INJ 4 MG/ML VIAL ONE (11:44)
[2023-03-25] MEDS ORDERED: SUGAMMADEX SODIUM 200 MG/2 ML VIAL IV ONE (11:44)
[2023-03-25] MEDS ORDERED: FLUMAZENIL 0.1 MG/1 ML 10 ML VIAL IV PRN (11:45)
[2023-03-25] MEDS ORDERED: ONDANSETRON INJ 2 MG/ML 2 ML VIAL IV PRN (11:45)
[2023-03-25] MEDS ORDERED: LABETALOL HCL IV 5 MG/ML 20ML IV PRN (11:45)
[2023-03-25] MEDS ORDERED: PROMETHAZINE HCL 12.5 MG in SODIUM CHLORIDE 0.9% 50 ML IV PRN (11:45)
[2023-03-25] MEDS ORDERED: ATROPINE SULFATE 0.1 MG/ML 10ML SYR IV PRN (11:45)
[2023-03-25] MEDS ORDERED: ePHEDrine sulfate 50 MG/ML AMP IV PRN (11:45)
[2023-03-25] MEDS ORDERED: NALOXONE HCL 0.4 MG/1 ML VIAL/CARP IV PRN (11:45)
[2023-03-25] MEDS ORDERED: fentaNYL citrate PF 100 MCG/2 ML VIAL IV PRN (11:45)
[2023-03-25] MEDS ORDERED: HYDROmorphone INJ 1 MG/ML SYRINGE IV PRN (11:45)
--- NOTE | 2023-03-25 11:52 | GI REPORT ---
Patient Name: Joshua Razat Procedure Date: 03/25/2023 10:43 AM Date of : 1990 Admit Type: Inpatient Age: 32 Gender: Male Attending MD: Delaney Cerna DO, Procedure: Upper GI endoscopy Providers: Delaney Cerna DO Referring MD: [place] Vo Indications: Foreign body in the stomach Medicines: General Anesthesia Complications: No immediate complications. Estimated blood loss: Minimal. Estimated Blood Loss: Estimated blood loss was minimal. Procedure: Pre-Anesthesia Assessment: - Prior to the procedure, a History and Physical was performed, and patient medications, allergies and sensitivities were reviewed. The patient's tolerance of previous anesthesia was reviewed. - The risks and benefits of the procedure and the sedation options and risks were discussed with the patient. All questions were answered and informed consent was obtained. - Patient identification and proposed procedure were verified prior to the procedure by the physician and the nurse. The procedure was verified in the pre-procedure area in the procedure room. - Mental Status Examination: alert and oriented. Airway Examination: normal oropharyngeal airway and neck mobility. Respiratory Examination: clear to auscultation. CV Examination: normal. Abdominal Examination: bowel sounds present, abdomen soft and non-tender, no masses or organomegaly noted. - ASA Grade Assessment: II - A patient with mild systemic disease. After obtaining informed consent, the endoscope was passed under direct vision. Throughout the procedure, the patient's blood pressure, pulse, and oxygen saturations were monitored continuously. The Scope was introduced through the mouth, and advanced to the second part of duodenum. The upper GI endoscopy was accomplished without difficulty. The patient tolerated the procedure well. Findings: The esophagus was normal. 5 sporks and 1 bent toothbrush were found in the gastric body. Removal was accomplished with a rat-toothed forceps and snare. The examined duodenum was normal. Impression: - Normal esophagus. - 5 sporks and 1 bent toothbrush were found in the stomach. Removal was successful. - Normal examined duodenum. Recommendation: - [facility] same day. - Patient should not be unsupervised. [facility], patient should have 1:1 supervision or be placed in a setting without unsupervised access to any object that can be swallowed. Delaney T. Abbey Cerna DO 03/25/2023 11:52:31 AM This report has been signed electronically. Note Initiated On: 03/25/2023 10:43 AM Number of Addenda: 0 I attest to the content of the Intraoperative Record and orders documented therein, exceptions below {[id number]}
--- NOTE | 2023-03-25 11:54 | Communication Note ---
Date of Service: March 25, 2023 Successful foreign body removal. See endoscopy report Patient stable [facility]
--- NOTE | 2023-03-25 12:41 | Anesthesiology Progress Note ---
Date of Service March 25, 2023 Anesthesia Post Procedure Vital Signs Vital Signs: Temp Pulse Pulse Resp BP BP Pulse Ox 03/25/23 12:30 36.6 C 51 L 19 110/67 100 03/25/23 12:25 52 L 10 L 110/66 100 03/25/23 12:15 54 L 13 114/70 100 03/25/23 12:04 36.0 C L 56 L 9 L 108/65 98 03/25/23 10:28 36.5 C 53 L 16 121/73 121/73 100 03/25/23 07:00 60 03/25/23 07:12 36.4 C L 48 L 18 110/66 97 03/25/23 05:31 36.5 C 53 L 18 123/71 97 03/24/23 23:35 58 L 03/24/23 23:05 36.4 C L 59 L 20 146/82 H 98 03/24/23 22:18 36.6 C 60 97 H 111/66 96 03/24/23 19:33 37.1 C 54 L 18 114/72 98 03/24/23 14:57 36.5 C 61 18 122/72 98 O2 Del Method O2 Flow Rate 03/25/23 12:30 Nasal Cannula 3 03/25/23 12:25 Nasal Cannula 3 03/25/23 12:15 Nasal Cannula 3 03/25/23 12:04 Oxymask 6 03/25/23 10:28 Room Air 03/25/23 07:00 03/25/23 07:12 Room Air 03/25/23 05:31 Room Air 03/24/23 23:35 03/24/23 23:05 Room Air 03/24/23 22:18 Room Air 03/24/23 19:33 Room Air 03/24/23 14:57 Room Air Pain Intensity Abdomen: Pain Intensity: 0 Transfer of Care Handoff Completed per policy Notes Mental Status: alert / awake / arousable Patient Amnestic to Procedure: Yes Nausea / Vomiting: adequately controlled Pain: adequately controlled Airway Patency, RR, SpO2: stable & adequate BP & HR: stable & adequate Hydration State: stable & adequate Anesthetic Complications: no major complications apparent
--- NOTE | 2023-03-25 15:25 | Discharge Summary ---
Date of Service March 25, 2023 Admission HPI Per Admitting Provider History obtained from patient and records. Medical history significant for mood disorder, antisocial personality disorder, borderline personality disorder, IBS, bronchial asthma, GERD, chronic anemia (baseline hemoglobin of 13), hx multiple foreign body ingestions status post endoscopic intervention, ongoing vape use. Last confinement 2 weeks ago for foreign body ingestion secondary to suicidality. Patient underwent endoscopic removal of the toothbrush, 2 energizer batteries and a sharpened paperclip. Last night, patient attempted to harm himself again by swallowing a toothbrush, 6 ports, and 2 AAA batteries. Patient also used a razor to try to cut his neck and upper belly. Bleeding wounds noted. Patient complaining of belly pain. Patient brought to ER for evaluation. Lacerations repaired at the ER. Patient underwent emergent EGD. Complicated endoscopic removal of foreign bodies as per GI specialist. Plastic forks in patient's stomach could not be removed safely. General Surgery recommended transfer to tertiary facility for advanced endoscopic services. Patient accepted for transfer at [facility] pending bed availability. Medical Historyas above Surgical History : None Family History : Cerebral aneurysm Personal/Social history : Vape use, no EtOH intake, factory work prior to incarceration Admission Exam Per Admitting Provider GENERAL: uncomfortable, obese, no respiratory distress SKIN: Normal color, warm HEENT: pale palpebral conjunctivae, no ptosis, dry buccal mucosa NECK : Supple, dressing over neck wounds with dried blood, some tenderness CHEST : CTA, no tenderness HEART :RRR, no obvious murmurs ABDOMEN: Some distention, sutured laceration over abdomen, central abdominal tenderness EXTREMITIES : Minimal LE swelling, no LE tenderness, no other conspicuous deformities noted NEUROLOGIC : Coherent, no facial asymmetry, no other gross focality Principal Diagnosis Ingestion of foreign bodies Suicidal attempt Discharge Exam Constitutional: WD/WN, vitals as above, NAD, sitting up in bed, pleasant, conversing easily Head: Normocephalic, Atraumatic Respiratory: normal respiratory effort, lungs clear to auscultation, no wheeze, rales, rhonchi. Normal insp/exp effort, no accessory muscle use Cardiovascular: RRR, no murmur, no edema Vessels: no JVD or carotid bruit Chest: normal inspection of chest Abdomen: Midline incision clean dry intact. Tenderness in periumbilical region Musculoskeletal: no cyanosis or clubbing, extremities motor strength 5/5 Skin: no rashes, warm and dry normal turgor Neurologic: PERRL, EOMI, accommodation nl, no face palsy, no dysarthria CN's II- XI intact bilaterally and moves all extremities Psychiatric: A+Ox3, euthymic affect Lymphatic: no cervical or axillary lymphadenopathy : deferred Discharge Data Allergies Allergy/AdvReac Type Severity Reaction Status Date / Time Penicillins Allergy Severe Anaphylaxis Verified 03/23/23 22:26 Consultations 03/24/23 04:18 Burn CD for patient Stat 03/24/23 04:53 Consult Psychiatry Routine 03/25/23 07:31 Consult Hospitalist Routine Procedures Performed Operation Date: 03/25/23 10:45 Actual Procedures p Esophagogastroduodenoscopy Foreign Body Removal(Not Applicable) - Delaney Cerna, Ordered Studies 03/23/23 22:15 CT abd pelvis wo con Stat CT chest diagnostic wo con Stat 03/25/23 07:39 CT abd pelvis wo con Urgent Hospital Course (1) Foreign body ingestion: Patient attempted to harm himself by swallowing toothbrush, forks. History of recurrent incidents secondary to self-harm intent, hx mood disorder/ antisocial personality disorder/ borderline personality disorder. Last admission [address] abdomen showed extensive radiopaque foreign bodies in the stomach Patient underwent emergent endoscopy; was unsuccessful. Surgical consultation was done. Surgery recommended patient to be transferred to tertiary care center for endoscopic removal. Initially, plan was to transfer the patient to [facility] at [place]. However, patient underwent endoscopy here on 03/25/2023; 5 [place] and 1 bend toothbrush were found in the stomach. Removal was successful. GI cleared the patient to be transferred. Patient tolerated clear liquid diet. Discussed with Dr. Hewitt at correctional facility prior to discharge. Total Time Total Time Spent Total Time Spent (In Minutes): 45 Total Time Includes: Examination of the Patient, Discharge Planning, Medication Reconciliation, Communication With Other Providers and Other Discharge Plan Discharge Items Patient Disposition: Correctional Facility Reason For Visit: HTN URG, FB INGESTION Discharge Diagnosis: Foreign body ingestion status post removal Suicide attempt Condition on Discharge: Good Activity: Resume your previous activity Non-emergency contact: Primary Care Provider Call non-emergency contact if: you have any medication questions and your symptoms worsen Follow-up/Referrals: Kinga CARRASCO [Primary Care Provider] - Diet: Regular Addtl Attending Provider Instructions: You were admitted to the hospital after ingestion of foreign bodies. You underwent endoscopy on 03/25/2023; 5 sporks and 1 bent toothbrush were found in the gastric body which were removed by GI doctor. If possible, please use finger food. Advise one-to-one supervision. Addtl Director Facilities Maintenance Provider Instructions: Avoid foreign body ingestions in the future. The sutures of your abdomen will need to be removed in approximately 14 days. Monitor the abdominal wound as well as the neck for any signs of infection such as redness or discharge. [id number] Tylenol is recommended for pain. [facility]. If it anytime there are concerns or issues do not hesitate to be evaluated by the infirmary and or referred here for reevaluation. Pending Studies at Discharge: No Stand-Alone Forms: My [facility] Skilled Items Patient informed of condition?: Yes Discharge Level of Care: Other Communicable Disease: No Discharge Prognosis: Stable Lines: None Urinary Catheter: No Medications and DC Order Prescriptions: Continued omeprazole 40 mg Capsule,Delayed Release(Dr/Ec) 40 mg PO DAILY fluoxetine 20 mg Capsule 80 mg PO DAILY Rx Instructions: CRUSH Alvesco 160 mcg/actuation Hfa Aerosol Inhaler 1 puff INHALATION BID benztropine 0.5 mg Tablet 0.5 mg PO BID Rx Instructions: CRUSH haloperidol decanoate 100 mg/mL Solution 100 mg IM .Q2WK Rx Instructions: Q 2 WK ON FRIDAYS. once daily acyclovir 400 mg Tablet 400 mg PO BID Rx Instructions: CRUSH trazodone 150 mg Tablet 150 mg PO HS Rx Instructions: CRUSH THIS MED buspirone 30 mg Tablet 30 mg PO BID calcium polycarbophil [FiberCon] 625 mg Tablet 625 mg PO BID Rx Instructions: CRUSH montelukast [Singulair] 10 mg Tablet 10 mg PO PM albuterol sulfate 90 mcg/actuation Hfa Aerosol Inhaler 2 puff INHALATION QID PRN (Reason: Shortness Of Breath Or Wheezing) polyethylene glycol 3350 [Miralax] 17 gram/dose Powder 17 g PO DAILY Discharge Orders: Discharge Order (Routine); Ordered 03/25/23 Ordered By: Jamel Tinoco Admission Data Admit Date/Time: 03/24/23 03:35 Attending Provider: Jamel Tinocoit Provider: Ian Hull Primary Care Provider: Kinga CARRASCO Other Providers: Raissa Jaimes ; Neli Romero ; Gilberto Madera ; Cris Tobar ; Nalini Jacob I. ; Char Matos ; Cynthia Ferreira ; Stormy Munson ; Debra Aguirre ; Mona Roblero ; Ian Hull ; Bernard Hunt ; Bill Osullivan ; Mary Solis ; Ismael Denson ; Zulma Soto ; Bhavani Lockwood ; Owen Guo ; Brie Peter ; Belen Wellington ; James Yousif ; Soniya Longoria I. ; Alfredo Mcknight ; Kendal Kennedy ; Sonia Lima ; Ryan Sherman ; Joel Herrmann ; Emil Thompson ; Godwin Meyer ; Jamel Tinoco ; Rosalva Cook ; Rusty Beverly Other Interventions: Discharge Summary Assessment (RN) Last Done: 03/25/23 14:41
== END 2023-03-25 16:03 | DRG 395 ==
LOC: ED 22:07 → OR 03-24 00:25 → 2E 03-24 00:25 → 2W 03-24 23:01